=== PATIENT | male | born 1950 | race Caucasian/White ===

== ENCOUNTER 2016-06-12 16:29 | Emergency (ER) | payer OTHER ==
--- NOTE | 2016-06-12 17:47 | XR ---
EXAMINATION TYPE: XR hand complete RT, XR wrist complete RT DATE OF EXAM: 06/12/2016 5:35 PM CLINICAL HISTORY: pain TECHNIQUE: Frontal, lateral and oblique images of the right hand are obtained. COMPARISON: None. FINDINGS: There is no acute fracture/dislocation evident. The joint spaces appear within normal limi ts. The overlying soft tissue appears unremarkable. IMPRESSION: There is no acute fracture or dislocation ICD 10 NO FRACTURE, INITIAL EVALUATION EXAMINATION TYPE: XR hand complete RT, XR wrist complete RT DATE OF EXAM: 06/12/2016 5:35 PM CLINICAL HISTORY: pain TECHNIQUE: Frontal, lateral and oblique images of the right wrist are obtained. COMPARISON: None. FINDINGS: There is no acute fracture/dislocation evident. The joint spaces appear within normal limits. The o verlying soft tissue appears unremarkable. IMPRESSION: There is no acute fracture or dislocation seen. ICD 10 NO FRACTURE, INITIAL EVALUATION
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
== END 2016-06-12 18:24 | disposition home or self-care (01) ==
LOC: EC 16:29
DX: S60.221A Contusion of right hand, initial encounter (principal); W22.8XXA Striking against or struck by other objects, initial encounter
CPT/HCPCS: 99284

== ENCOUNTER 2017-02-07 00:46 | Emergency (ER) | payer OTHER ==
[2017-02-07] MEDS ORDERED: ONDANSETRON 4 MG/2 ML VIAL IVP STA (01:28)
[2017-02-07] MEDS ORDERED: MORPHINE SULFATE 4 MG/ML SYRINGE IV STA (01:28)
[2017-02-07] MEDS ORDERED: SODIUM CHLORIDE 0.9% 1,000 ML IV STA ×2 (01:28)
[2017-02-07] MEDS ORDERED: RX INFO: IV CONTRAST WAS GIVEN 1 EACH MISC MISCELLANE PRN (01:28)
--- NOTE | 2017-02-07 02:18 | ED ---
Abdominal Pain HPI - General Chief Complaint: Abdominal Pain Stated Complaint: abd pain Time Seen by Provider: 02/07/17 00:58 Source: patient, RN notes reviewed, old records reviewed Mode of arrival: ambulatory Limitations: no limitations - History of Present Illness Initial Comments: Physical is a pleasant 66-year-old male presenting to the emergency Department chief complaint of left lower abdominal pain for the past day. Patient reports that it seemed to occur after he ate ice cream, he does have a history of lactose intolerance. He also relates he did have 2 episodes of diarrhea. Patient states that he's had no fever or chills, denies any vomiting or nausea episodes. Patient states it seems to be a left lower dull pain, and seemed to not be letting up. Patient originally thought it was just related to indigestion. Patient denies any significant past medical history, surgical history includes bilateral knee replacements, and tonsillectomy. Patient reports the pain stays mainly in the lower abdomen, denies any specific back pain. Denies any chest pain, shortness of breath. - Related Data Previous Rx's Medication Instructions Recorded Ciprofloxacin HCl [Cipro] 500 mg PO Q12HR #14 tablet 02/07/17 HYDROcodone/APAP 5-325MG [[place] 1 tab PO Q6HR PRN #15 tab 02/07/17 5-325] Ketorolac [Toradol] 10 mg PO TID #15 tab 02/07/17 Ondansetron Odt [Zofran Odt] 4 mg PO Q8HR PRN #10 tab 02/07/17 Tamsulosin [Flomax] 0.4 mg PO DAILY #7 cap 02/07/17 Allergies Allergy/AdvReac Type Severity Reaction Status Date / Time No Known Allergies Allergy Verified 02/07/17 00:51 Review of Systems ROS Statement: Those systems with pertinent positive or pertinent negative responses have been documented in the HPI. ROS Other: All systems not noted in ROS Statement are negative. Past Medical History Past Medical History: No Reported History History of Any Multi-Drug Resistant Organisms: None Reported Additional Past Surgical History / Comment(s): bilater knee replacement Past Psychological History: No Psychological Hx Reported Smoking Status: Never smoker Past Alcohol Use History: Occasional Past Drug Use History: None Reported General Exam - General Exam Comments Initial Comments: Pleasant 66-year-old male. No distress. Limitations: no limitations General appearance: alert, in no apparent distress Head exam: Present: atraumatic, normocephalic, normal inspection Eye exam: Present: normal appearance, PERRL, EOMI. Absent: scleral icterus, conjunctival injection, periorbital swelling ENT exam: Present: normal exam, mucous membranes moist Neck exam: Present: normal inspection. Absent: tenderness, meningismus, lymphadenopathy Respiratory exam: Present: normal lung sounds bilaterally. Absent: respiratory distress, wheezes, rales, rhonchi, stridor Cardiovascular Exam: Present: regular rate, normal rhythm, normal heart sounds. Absent: systolic murmur, diastolic murmur, rubs, gallop, clicks GI/Abdominal exam: Present: soft, tenderness (minimal LLQ tenderness), normal bowel sounds, other (protruberant abdomen). Absent: distended, guarding, rebound, rigid Extremities exam: Present: normal inspection, full ROM, normal capillary refill. Absent: tenderness, pedal edema, joint swelling, calf tenderness Back exam: Present: normal inspection Neurological exam: Present: alert, oriented X3, CN II-XII intact Psychiatric exam: Present: normal affect, normal mood Skin exam: Present: warm, dry, intact, normal color. Absent: rash Course Vital Signs 02/07/ 00:51 Temperature 98.5 F Pulse Rate 85 Respiratory 20 Rate Blood Pressure 176/87 O2 Sat by Pulse 98 Oximetry Medical Decision Making - Medical Decision Making Is a 66-year-old male presenting to emergency department with 1 evening of left lower quadrant abdominal pain. Patient originally thought it was related to lactose intolerance. He does have some mental multi-tenderness left lower quadrant on exam. Patient is afebrile. Patient was given IV fluids and lab work obtained. Patient also given IV morphine in and nausea medicine. Patient was reevaluated and is resting comfortably at this time. He states that his pain has resolved. Patient's lab work showed evidence of mild leukocytosis of 12.3 with a left shift of 10.7. Patient underwent CT abdomen and pelvis, mainly concern for diverticulitis. After patient's CT was performed, there is actually evidence of a 7 mm left ureteral stone, causing hydronephrosis. Patient was informed of this. He has not seen a urologist in the past. Discussed with the patient that because of his stone being greater than 6 mm that he will need to follow-up with urologist, for further evaluation including lithotripsy or ureteral stent placement. Patient has no elevations in BUN and creatinine, and urinalysis is negative for any blood cells, or signs of infection. Patient will be given initial dose of Flomax, Zofran starter pack, and Toradol for pain. Patient will be discharged with nausea medicine and pain medication. Referral for urology. Patient understands treatment plan will comply. Close return parameters were discussed. - Lab Data Result diagrams: 02/07/17 02:08 02/07/17 02:08 Lab Results 02/07/17 02/07/17 02/07/17 Range/Units 02:08 02:08 02:08 WBC 12.3 H (3.8-10.6) k/uL RBC 4.92 (4.30-5.90) m/uL Hgb 14.6 (13.0-17.5) gm/dL Hct 41.2 (39.0-53.0) % MCV 83.7 (80.0-100.0) fL MCH 29.7 (25.0-35.0) pg MCHC 35.5 (31.0-37.0) g/dL RDW 13.3 (11.5-15.5) % Plt Count 198 (150-450) k/uL Neutrophils % 82 % Lymphocytes % 8 % Monocytes % 6 % Eosinophils % 1 % Basophils % 0 % Neutrophils # 10.0 H (1.3-7.7) k/uL Lymphocytes # 1.0 (1.0-4.8) k/uL Monocytes # 0.7 (0-1.0) k/uL Eosinophils # 0.2 (0-0.7) k/uL Basophils # 0.0 (0-0.2) k/uL PT 10.3 (9.0-12.0) sec INR 1.0 (<1.2) APTT 23.6 (22.0-30.0) sec Sodium 139 (137-145) mmol/L Potassium 4.5 (3.5-5.1) mmol/L Chloride 106 (98-107) mmol/L Carbon Dioxide 23 (22-30) mmol/L Anion Gap 10 mmol/L BUN 20 (9-20) mg/dL Creatinine 0.90 (0.66-1.25) mg/dL Est GFR (MDRD) Af Amer >60 (>60 ml/min/1.73 sqM) Est GFR (MDRD) Non-Af >60 (>60 ml/min/1.73 sqM) Glucose 127 H (74-99) mg/dL Calcium 9.2 (8.4-10.2) mg/dL Total Bilirubin 0.7 (0.2-1.3) mg/dL AST 26 (17-59) U/L ALT 41 (21-72) U/L Alkaline Phosphatase 64 (38-126) U/L Total Protein 7.1 (6.3-8.2) g/dL Albumin 4.1 (3.5-5.0) g/dL Amylase 56 (30-110) U/L Lipase 94 (23-300) U/L Urine Color Urine Appearance (Clear) Urine pH (5.0-8.0) Ur Specific [place] (1.001-1.035) Urine Protein (Negative) Urine Glucose (UA) (Negative) Urine Ketones (Negative) Urine Blood (Negative) Urine Nitrite (Negative) Urine Bilirubin (Negative) Urine Urobilinogen (<2.0) mg/dL Ur Leukocyte Esterase (Negative) 02/07/17 Range/Units 02:08 WBC (3.8-10.6) k/uL RBC (4.30-5.90) m/uL Hgb (13.0-17.5) gm/dL Hct (39.0-53.0) % MCV (80.0-100.0) fL MCH (25.0-35.0) pg MCHC (31.0-37.0) g/dL RDW (11.5-15.5) % Plt Count (150-450) k/uL Neutrophils % % Lymphocytes % % Monocytes % % Eosinophils % % Basophils % % Neutrophils # (1.3-7.7) k/uL Lymphocytes # (1.0-4.8) k/uL Monocytes # (0-1.0) k/uL Eosinophils # (0-0.7) k/uL Basophils # (0-0.2) k/uL PT (9.0-12.0) sec INR (<1.2) APTT (22.0-30.0) sec Sodium (137-145) mmol/L Potassium (3.5-5.1) mmol/L Chloride (98-107) mmol/L Carbon Dioxide (22-30) mmol/L Anion Gap mmol/L BUN (9-20) mg/dL Creatinine (0.66-1.25) mg/dL Est GFR (MDRD) Af Amer (>60 ml/min/1.73 sqM) Est GFR (MDRD) Non-Af (>60 ml/min/1.73 sqM) Glucose (74-99) mg/dL Calcium (8.4-10.2) mg/dL Total Bilirubin (0.2-1.3) mg/dL AST (17-59) U/L ALT (21-72) U/L Alkaline Phosphatase (38-126) U/L Total Protein (6.3-8.2) g/dL Albumin (3.5-5.0) g/dL Amylase (30-110) U/L Lipase (23-300) U/L Urine Color Light Yellow Urine Appearance Clear (Clear) Urine pH 6.0 (5.0-8.0) Ur Specific [place] 1.008 (1.001-1.035) Urine Protein Negative (Negative) Urine Glucose (UA) Negative (Negative) Urine Ketones Negative (Negative) Urine Blood Negative (Negative) Urine Nitrite Negative (Negative) Urine Bilirubin Negative (Negative) Urine Urobilinogen <2.0 (<2.0) mg/dL Ur Leukocyte Esterase Negative (Negative) - Radiology Data Radiology results: report reviewed CT abdomen and pelvis was performed and shows a 7 mm calculus within the left distal ureter which causes mild hydroureteronephrosis, perirenal perinephric stranding and delayed nephrogram. There also are additional nonobstructing calculi within both kidneys. Disposition Clinical Impression: Left ureteral stone Disposition: HOME SELF-CARE Condition: Good Instructions: Kidney Stones (ED) Additional Instructions: Patient advised to take the medications as prescribed. Follow-up with urology. Return to the emergency department if any alarming signs or symptoms occur. Prescriptions: Ciprofloxacin HCl [Cipro] 500 mg PO Q12HR #14 tablet HYDROcodone/APAP 5-325MG [[place] 5-325] 1 tab PO Q6HR PRN #15 tab PRN Reason: Pain Ketorolac [Toradol] 10 mg PO TID #15 tab Ondansetron Odt [Zofran Odt] 4 mg PO Q8HR PRN #10 tab PRN Reason: Nausea Tamsulosin [Flomax] 0.4 mg PO DAILY #7 cap Referrals: Bear Zapata MD [Primary Care Provider] - 1-2 days Time of Disposition: 03:59
[2017-02-07 02:23] LABS: Appearance,Urine Clear (Clear); Bilirubin,Urine Negative (Negative); Glucose,Urine (UA) Negative (Negative); Ketones,Urine Negative (Negative); Leukocyte Esterase,Urine Negative (Negative); Nitrite,Urine Negative (Negative); Protein,Urine Negative (Negative); Specific Gravity,Urine 1.008 (1.001-1.035); UA Billing (MACRO vs. MICRO) CHEM; Urobilinogen,Urine <2.0 mg/dL (<2.0)
[2017-02-07 02:28] LABS: Basophils % (A) 0 %; CH 29.6; CHCM 35.5; Eosinophils # (A) 0.2 k/uL (0-0.7); Eosinophils % (A) 1 %; HCT 41.2 % (39.0-53.0); HDW 2.77; HGB 14.6 gm/dL (13.0-17.5); Luc # (Auto) 0.31; Luc % (Auto) 3; Lymphocytes % (A) 8 %; MCH 29.7 pg (25.0-35.0); MCHC 35.5 g/dL (31.0-37.0); MCV 83.7 fL (80.0-100.0); Monocytes # (A) 0.7 k/uL (0-1.0); Monocytes % (A) 6 %; Neutrophils % (A) 82 %; RBC 4.92 m/uL (4.30-5.90); RDW 13.3 % (11.5-15.5); WBC 12.3 k/uL (3.8-10.6); WBC (Perox) 11.92
[2017-02-07 02:32] LABS: Partial Thromboplastin Time 23.6 sec (22.0-30.0); Prothrombin Time 10.3 sec (9.0-12.0)
[2017-02-07 02:33] LABS: ALT 41 U/L (21-72); AST 26 U/L (17-59); Alkaline Phosphatase 64 U/L (38-126); Amylase 56 U/L (30-110); Anion Gap 10 mmol/L; Blood Urea Nitrogen 20 mg/dL (9-20); Calcium 9.2 mg/dL (8.4-10.2); Carbon Dioxide 23 mmol/L (22-30); Chloride 106 mmol/L (98-107); Glucose 127 mg/dL (74-99); Non-African American GFR(MDRD) >60 (>60 ml/min/1.73 sqM); Potassium 4.5 mmol/L (3.5-5.1); Sodium 139 mmol/L (137-145); Total Bilirubin 0.7 mg/dL (0.2-1.3); Total Protein 7.1 g/dL (6.3-8.2)
--- NOTE | 2017-02-07 03:10 | CT ---
EXAM: CT Abdomen and Pelvis With Intravenous Contrast CLINICAL HISTORY: Abdominal pain TECHNIQUE: Axial computed tomography images of the abdomen and pelvis with intravenous contrast. CTDI is 61.1, 59.10 mGy and DLP is 5072.5 mGy-cm. This CT exam was performed using one or more of the following dose reduction techniques: automated exposure control, adjustment of the mA and/or kV according to patient size, and/or use of iterative reconstruction technique. COMPARISON: No relevant prior studies available. FINDINGS: Lower thorax: No acute findings. ABDOMEN: Liver: Decreased attenuation of the liver which may be phase of IV contrast versus hepatic steatosis. Gallbladder and bile ducts: Unremarkable. Pancreas: Unremarkable. Spleen: Unremarkable. Adrenals: Unremarkable. Kidneys and ureters: There is a 7 mm calculus within the distal left ureter (4-73) which causes mild hydroureteronephrosis, perirenal/perinephric stranding and delayed nephrogram. There are additional non-obstructing calculi within both kidneys. Stomach and bowel: Unremarkable. Appendix: No findings to suggest acute appendicitis. PELVIS: Bladder: Unremarkable. Reproductive: Unremarkable as visualized. ABDOMEN and PELVIS: Intraperitoneal space: Unremarkable. Bones/joints: No acute fracture. No dislocation. Soft tissues: Unremarkable. Vasculature: Unremarkable. Lymph nodes: Unremarkable. IMPRESSION: 1. There is a 7 mm calculus within the distal left ureter (4-73) which causes mild hydroureteronephrosis, perirenal/perinephric stranding and delayed nephrogram. 2. There are additional non-obstructing calculi within both kidneys.
[2017-02-07] MEDS ORDERED: ONDANSETRON 4 MG ODT STARTER PACK 2 TAB BTL PO STA (03:57)
[2017-02-07] MEDS ORDERED: ACET/COD 300 MG/30 MG STARTER PACK 6 TAB BTL PO STA (03:57)
[2017-02-07] MEDS ORDERED: KETOROLAC 30 MG/ML 1 ML VIAL IVP STA (03:57)
[2017-02-07] MEDS ORDERED: CIPROFLOXACIN HCL 500 MG TAB PO STA (03:58)
[2017-02-07] MEDS ORDERED: TAMSULOSIN 0.4 MG CAP.ER.24H PO STA (03:58)
--- NOTE | 2017-02-07 04:03 | ED ---
Medical Decision Making - Lab Data Result diagrams: 02/07/17 02:08 02/07/17 02:08 Lab Results 02/07/17 02/07/17 02/07/17 Range/Units 02:08 02:08 02:08 WBC 12.3 H (3.8-10.6) k/uL RBC 4.92 (4.30-5.90) m/uL Hgb 14.6 (13.0-17.5) gm/dL Hct 41.2 (39.0-53.0) % MCV 83.7 (80.0-100.0) fL MCH 29.7 (25.0-35.0) pg MCHC 35.5 (31.0-37.0) g/dL RDW 13.3 (11.5-15.5) % Plt Count 198 (150-450) k/uL Neutrophils % 82 % Lymphocytes % 8 % Monocytes % 6 % Eosinophils % 1 % Basophils % 0 % Neutrophils # 10.0 H (1.3-7.7) k/uL Lymphocytes # 1.0 (1.0-4.8) k/uL Monocytes # 0.7 (0-1.0) k/uL Eosinophils # 0.2 (0-0.7) k/uL Basophils # 0.0 (0-0.2) k/uL PT 10.3 (9.0-12.0) sec INR 1.0 (<1.2) APTT 23.6 (22.0-30.0) sec Sodium 139 (137-145) mmol/L Potassium 4.5 (3.5-5.1) mmol/L Chloride 106 (98-107) mmol/L Carbon Dioxide 23 (22-30) mmol/L Anion Gap 10 mmol/L BUN 20 (9-20) mg/dL Creatinine 0.90 (0.66-1.25) mg/dL Est GFR (MDRD) Af Amer >60 (>60 ml/min/1.73 sqM) Est GFR (MDRD) Non-Af >60 (>60 ml/min/1.73 sqM) Glucose 127 H (74-99) mg/dL Calcium 9.2 (8.4-10.2) mg/dL Total Bilirubin 0.7 (0.2-1.3) mg/dL AST 26 (17-59) U/L ALT 41 (21-72) U/L Alkaline Phosphatase 64 (38-126) U/L Total Protein 7.1 (6.3-8.2) g/dL Albumin 4.1 (3.5-5.0) g/dL Amylase 56 (30-110) U/L Lipase 94 (23-300) U/L Urine Color Urine Appearance (Clear) Urine pH (5.0-8.0) Ur Specific [place] (1.001-1.035) Urine Protein (Negative) Urine Glucose (UA) (Negative) Urine Ketones (Negative) Urine Blood (Negative) Urine Nitrite (Negative) Urine Bilirubin (Negative) Urine Urobilinogen (<2.0) mg/dL Ur Leukocyte Esterase (Negative) 02/07/17 Range/Units 02:08 WBC (3.8-10.6) k/uL RBC (4.30-5.90) m/uL Hgb (13.0-17.5) gm/dL Hct (39.0-53.0) % MCV (80.0-100.0) fL MCH (25.0-35.0) pg MCHC (31.0-37.0) g/dL RDW (11.5-15.5) % Plt Count (150-450) k/uL Neutrophils % % Lymphocytes % % Monocytes % % Eosinophils % % Basophils % % Neutrophils # (1.3-7.7) k/uL Lymphocytes # (1.0-4.8) k/uL Monocytes # (0-1.0) k/uL Eosinophils # (0-0.7) k/uL Basophils # (0-0.2) k/uL PT (9.0-12.0) sec INR (<1.2) APTT (22.0-30.0) sec Sodium (137-145) mmol/L Potassium (3.5-5.1) mmol/L Chloride (98-107) mmol/L Carbon Dioxide (22-30) mmol/L Anion Gap mmol/L BUN (9-20) mg/dL Creatinine (0.66-1.25) mg/dL Est GFR (MDRD) Af Amer (>60 ml/min/1.73 sqM) Est GFR (MDRD) Non-Af (>60 ml/min/1.73 sqM) Glucose (74-99) mg/dL Calcium (8.4-10.2) mg/dL Total Bilirubin (0.2-1.3) mg/dL AST (17-59) U/L ALT (21-72) U/L Alkaline Phosphatase (38-126) U/L Total Protein (6.3-8.2) g/dL Albumin (3.5-5.0) g/dL Amylase (30-110) U/L Lipase (23-300) U/L Urine Color Light Yellow Urine Appearance Clear (Clear) Urine pH 6.0 (5.0-8.0) Ur Specific [place] 1.008 (1.001-1.035) Urine Protein Negative (Negative) Urine Glucose (UA) Negative (Negative) Urine Ketones Negative (Negative) Urine Blood Negative (Negative) Urine Nitrite Negative (Negative) Urine Bilirubin Negative (Negative) Urine Urobilinogen <2.0 (<2.0) mg/dL Ur Leukocyte Esterase Negative (Negative) Disposition Clinical Impression: Left ureteral stone Disposition: HOME SELF-CARE Condition: Good Instructions: Kidney Stones (ED) Additional Instructions: Patient advised to take the medications as prescribed. Follow-up with urology. Return to the emergency department if any alarming signs or symptoms occur. Prescriptions: Ciprofloxacin HCl [Cipro] 500 mg PO Q12HR #14 tablet HYDROcodone/APAP 5-325MG [[place] 5-325] 1 tab PO Q6HR PRN #15 tab PRN Reason: Pain Ketorolac [Toradol] 10 mg PO TID #15 tab Ondansetron Odt [Zofran Odt] 4 mg PO Q8HR PRN #10 tab PRN Reason: Nausea Tamsulosin [Flomax] 0.4 mg PO DAILY #7 cap Referrals: Bear Zapata MD [Primary Care Provider] - 1-2 days Gabriel Laughlin MD [STAFF PHYSICIAN] - 1-2 days Time of Disposition: 04:03
[2017-02-07 04:20] VITALS: BP 156/85; PULSE 68; RESP 16; TEMP 98.8
== END 2017-02-07 04:26 | disposition home or self-care (01) ==
LOC: EC 00:46
DX: N13.2 Hydronephrosis with renal and ureteral calculous obstruction (principal); Z96.653 Presence of artificial knee joint, bilateral
CPT/HCPCS: 36415; 80053; 82150; 83690; 85025; 85610; 85730; 81003; 74177; 99285; 96374; 96375 ×2; 96361 ×2; J2270; J2405; J1885; Q9967; S0119

== ENCOUNTER → 2017-02-24 | Outpatient (CLI) | payer MEDICARE, OTHER ==
--- NOTE | 2017-02-25 10:37 | XR ---
Abdomen HISTORY: Calculus of ureter Frontal view of the abdomen submitted on 2 images [address] correlated to CT scan 02/07/2017 Heart degenerative disc changes in the visualized spine. Suspect a distal left ureteral calculus is p resent correlating with CT findings measuring approximately 6 mm in greatest dimension. Lung bases ar e not included in the exam. No evident bowel obstruction or pneumoperitoneum. IMPRESSION: Findings compatible with distal left ureteral calculus.
== END | disposition home or self-care (01) ==
LOC: RADXRMAIN 17:34
PROVIDERS: ATTEND Physician Assistant
DX: N20.1 Calculus of ureter (principal)
CPT/HCPCS: 74000

== ENCOUNTER → 2017-03-14 | Outpatient (CLI) | payer OTHER, MEDICARE ==
--- NOTE | 2017-03-14 14:27 | US ---
EXAMINATION TYPE: US kidneys/renal and bladder DATE OF EXAM: 03/14/2017 COMPARISON: CT 2017 CLINICAL HISTORY: N20.1 Calculus of ureter. EXAM MEASUREMENTS: Right Kidney: 11.3 x 5.8 x 4.8 cm Left Kidney: 11.6 x 5.7 x 4.6 cm Right Kidney: No hydronephrosis. Echogenic focus visualized measuring 0.4 cm Left Kidney: No hydronephrosis. Echogenic focus visualized measuring 0.6 cm Bladder: wnl, not fully distended Bilateral Jets seen: No, however, bladder is not fully distended There is no evidence for hydronephrosis at this point in time. No masses are identified. The urinar y bladder is anechoic. Cortical medullary differentiation is maintained. IMPRESSION: Bilateral nephrolithiasis. No evident hydronephrosis.
== END ==
LOC: RADUSMAIN 13:42
PROVIDERS: ATTEND Urology
DX: N20.0 Calculus of kidney (principal)
CPT/HCPCS: 76770

== ENCOUNTER 2018-06-29 07:22 | Day surgery (SDC) | payer BC, MEDICARE ==
[2018-06-25 14:03] VITALS: BMI 45.6
--- NOTE | 2018-06-29 05:37 | P.GSHP ---
History of Present Illness H&P Date: 06/29/18 CHIEF COMPLAINT: Colon screen HISTORY OF PRESENT ILLNESS: The patient is a 67-year-old male who presents for colon screen. Lower endoscopy was offered for further evaluation and management. PAST MEDICAL HISTORY: Please see list. PAST SURGICAL HISTORY: Please see list. MEDICATIONS: Please see list. ALLERGIES: Please see list. SOCIAL HISTORY: No illicit drug use FAMILY HISTORY: No reports of Crohn disease or ulcerative colitis. REVIEW OF ORGAN SYSTEMS: CONSTITUTIONAL: No reports of fevers or chills. PHYSICAL EXAM: VITAL SIGNS: Stable GENERAL: Well-developed pleasant in no acute distress. HEENT: No scleral icterus. Extraocular movements grossly intact. Moist buccal mucosa. NECK: Supple without lymphadenopathy. CHEST: Unlabored respirations. Equal bilateral excursions. CARDIOVASCULAR: Regular rate and rhythm. Distal 2+ pulses. ABDOMEN: Soft, nontender, nondistended. MUSCULOSKELETAL: No clubbing, cyanosis, or edema. ASSESSMENT: 1. Colon screen. PLAN: 1. Recommend proceeding with a lower endoscopy Past Medical History Past Medical History: Diabetes Mellitus Additional Past Medical History / Comment(s): STATES BORDERLINE DIABETES, HX KIDNEY STONES, HX OF MALARIA 35 YRS AGO History of Any Multi-Drug Resistant Organisms: None Reported Past Surgical History: Joint Replacement Additional Past Surgical History / Comment(s): jennifer knee replacement Past Anesthesia/Blood Transfusion Reactions: Previous Problems w/ Anesthesia Additional Past Anesthesia/Blood Transfusion Reaction / Comment(s): WOKE UP DURING LAST COLONOSCOPY Smoking Status: Never smoker Medications and Allergies Home Medications Medication Instructions Recorded Confirmed Type Adipex 1 tab PO DAILY 06/25/18 History Metformin 1 tab PO BID 06/25/18 History [place]-3 Fatty Acids/Fish Oil [Fish 1 each PO 06/25/18 History Oil 1,000 mg Softgel] Allergies Allergy/AdvReac Type Severity Reaction Status Date / Time No Known Allergies Allergy Verified 06/25/18 13:58
[~2018-06-29 07:22] MED LIST: LACTATED RINGERS 1,000 ML IV SCH
[2018-06-29 08:15] VITALS: RESP 16; TEMP 97
[2018-06-29] MEDS ORDERED: LIDOCAINE 1% 20 ML VIAL (10MG/ML) FOR IV START INTRADERMA ONE (08:15)
[2018-06-29 08:19] LABS: Glucose,Whole Blood 105 mg/dL (75-99)
[2018-06-29] MEDS ORDERED: PROPOFOL 10 MG/ML 20 ML VIAL IV ONE (09:15)
--- NOTE | 2018-06-29 09:43 | P.PCN ---
Date of Procedure: 06/29/18 Description of Procedure: PREOPERATIVE DIAGNOSIS: Family history of colon cancer, grandfather Colonoscopy screening POSTOPERATIVE DIAGNOSIS: Family history of colon cancer, grandfather Colonoscopy screening Multiple tubular adenomas throughout the colon. OPERATION: Colonoscopy to the ileocecal valve and appendiceal orifice. Colonoscopy with multiple hot snare polypectomies SURGEON: Rosemary Meade MD. ANESTHESIA: MAC. INDICATIONS: The patient is a 67year-old male who presents for colonoscopy screening. Last colonoscopy 10 years ago. Benefits and risks were described and informed consent was obtained. DESCRIPTION OF PROCEDURE: The patient had undergone Gatorade, MiraLAX and Dulcolax prep. He had been brought into the operating room and laid in the left lateral decubitus position. After adequate intravenous sedation, the rectum was examined with 2% lidocaine jelly. External hemorrhoids were encountered. The rectal tone was within normal limits. No lesions were palpated in the rectal vault. An Olympus colonoscope was advanced until the ileocecal valve and appendiceal orifice were clearly viewed. The prep was poor. The scope was removed with visualization of each mucosal fold. No scattered diverticulosis was encountered. Multiple colonic polyps were found and cold forcep biopsy or snare polypectomy. No evidence of focal colitis was found. Retroflexion of the scope demonstrated grade 1 internal hemorrhoids without active bleeding or inflammation. The colon was desufflated. The patient had tolerated the procedure well. Withdrawal time was over 6 minutes. FINDINGS: Internal hemorrhoids, grade 1 External hemorrhoids, grade 2. No arteriovenous malformations. Removal of 3 polyps: - Snare polypectomy mid transverse colon 2, 5 mm tubulovillous adenoma polyps. - Snare polypectomy 40 cm from the anal verge, 8 mm flat villous adenoma polyp, descending colon Overall poor prep. No focal colitis. RECOMMENDATIONS: Given family history and severity of tubular adenomas, recommend repeat colonoscopy 2 years, 2020. Plan - Discharge Summary Discharge Rx Participant: No New Discharge Prescriptions: No Action [place]-3 Fatty Acids/Fish Oil [Fish Oil 1,000 mg Softgel] 1,000 mg PO DAILY Metformin 500 mg PO DAILY Adipex 37.5 mg PO DAILY Discharge Medication List Adipex 37.5 mg PO DAILY 06/25/18 [History] Metformin 500 mg PO DAILY 06/25/18 [History] [place]-3 Fatty Acids/Fish Oil [Fish Oil 1,000 mg Softgel] 1,000 mg PO DAILY 06/25 [History]
[2018-06-29 10:06] VITALS: BP 157/94; PULSE 66
== END 2018-06-29 10:36 | disposition home or self-care (01) ==
LOC: ORWHC2ENDO 07:22
PROVIDERS: ATTEND Surgery Plastic and Reconstructive Surgery
DX: Z12.11 Encounter for screening for malignant neoplasm of colon (principal); D12.3 Benign neoplasm of transverse colon; D12.4 Benign neoplasm of descending colon; E11.9 Type 2 diabetes mellitus without complications; K64.4 Residual hemorrhoidal skin tags; K64.0 First degree hemorrhoids; E66.01 Morbid (severe) obesity due to excess calories; G47.33 Obstructive sleep apnea (adult) (pediatric); Z79.84 Long term (current) use of oral hypoglycemic drugs; Z79.899 Other long term (current) drug therapy; Z96.653 Presence of artificial knee joint, bilateral; Z80.0 Family history of malignant neoplasm of digestive organs; Z68.42 Body mass index [BMI] 45.0-49.9, adult
CPT/HCPCS: 88305; 45385; J2704

== ENCOUNTER → 2018-06-29 | Outpatient (CLI) | payer MEDICARE ==
--- NOTE | 2018-06-29 07:38 | US ---
EXAMINATION TYPE: US duplex aorta DATE OF EXAM: 06/29/2018 COMPARISON: CT 2017 CLINICAL HISTORY: I71.4 Abdominal Aortic Aneurysm w/o rupture. Family history of AAA EXAM MEASUREMENTS: Abdominal Aorta: Proximal: 2.9 x 2.8cm Mid: 2.4 x 2.7cm Distal: 2.2 x 2.4cm Right Iliac: 1.4 x 1.3cm Left Iliac: 1.5 x 1.3cm Technically difficult and limited study due to patient body habitus Examination is suboptimal secondary to patient's large body habitus. Visualized portions of aorta thr ough the common iliac bifurcation show no greater than 3 cm aneurysmal change. IMPRESSION: Suboptimal study without AAA appreciated.
== END | disposition home or self-care (01) ==
LOC: RADUSWWP 06:49
PROVIDERS: ATTEND Family Medicine
DX: I71.4 Abdominal aortic aneurysm, without rupture (principal)
CPT/HCPCS: 93979

== ENCOUNTER → 2019-04-26 | Outpatient (CLI) | payer MEDICARE ==
--- NOTE | 2019-04-26 22:45 | XR ---
EXAMINATION TYPE: XR shoulder complete LT DATE OF EXAM: 04/26/2019 COMPARISON: NONE HISTORY: Pain TECHNIQUE: Three views are submitted. FINDINGS: The osseous structures are intact. There is no acute fracture or dislocation. The AC joint is maint ained. There is mild hypertrophic changes. IMPRESSION: 1. Mild AC joint arthropathy spurring. If there is concern for chronic rotator cuff disease correlate with MRI. 2. Chronic appearing deformity along the lower margin of the humeral head may be post arthritic or on the basis of previous trauma correlate clinically.
== END | disposition home or self-care (01) ==
LOC: RADXRMAIN 18:36
PROVIDERS: ATTEND Family Medicine
DX: M19.012 Primary osteoarthritis, left shoulder (principal); M21.822 Other specified acquired deformities of left upper arm

== ENCOUNTER → 2019-06-09 | Outpatient (CLI) | payer MEDICARE ==
--- NOTE | 2019-06-10 01:52 | MR ---
EXAMINATION TYPE: MR shoulder LT wo con DATE OF EXAM: 06/09/2019 COMPARISON: None HISTORY: Lt shoulder pain Multiplanar multiecho imaging of the left shoulder was performed without contrast. There is significant narrowing of the shoulder joint space with spur formation. Subscapularis tendon appears intact. There is some fluid around the biceps tendon. There is mild shoulder joint effusion. There is spurring of the glenoid talha. There is moderate spurring on the inferior humeral head. Ther e is increased signal in the supraspinatus tendon over the greater tuberosity of the humerus. There i s no retraction. I see no fracture line. There is hypertrophic spurring of the glenoid talha. There i s 5 mm low signal rounded foci at the posterior aspect of the shoulder joint that could be synovial c hondromatosis. 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 Mild shoulder wayne int effusion. Full-thickness tear of the supraspinatus tendon without retraction. No fracture seen.
== END | disposition home or self-care (01) ==
LOC: RADMRIMAIN 21:03
PROVIDERS: ATTEND Orthopaedic Surgery
DX: M75.122 Complete rotator cuff tear or rupture of left shoulder, not specified as traumatic (principal); M19.012 Primary osteoarthritis, left shoulder

== ENCOUNTER 2019-06-11 18:02 | Emergency (ER) | payer MEDICARE ==
[2019-06-11 18:07] VITALS: TEMP 98.4
--- NOTE | 2019-06-11 19:12 | ED ---
Fall HPI - General Chief Complaint: Fall Stated Complaint: slip & fall-[facility] Time Seen by Provider: 06/11/19 18:26 Source: patient Mode of arrival: ambulatory - History of Present Illness Initial Comments: 68-year-old male patient presents to the emergency department today for evalu ation after experiencing a fall. Patient states around 12:15 this afternoon he slipped forward on some ice landing on some stairs. Patient states that he struck his abdomen and the left elbow. Patient is reporting upper abdominal pain and left elbow pain. He denies hitting his head or losing consciousness. Denies headache. Denies any neck or back pain. Denies any nausea, vomiting, constipation, diarrhea. He did have a bowel movement, denies hematochezia or melena. He denies any hematuria. Denies dizziness or weakness. Denies any shortness of breath or hemoptysis. Denies any use of anticoagulants. - Related Data Home Medications Medication Instructions Recorded Confirmed Adipex 37.5 mg PO DAILY 06/25/18 06/29/18 Metformin 500 mg PO DAILY 06/25/18 06/29/18 [place]-3 Fatty Acids/Fish Oil [Fish 1,000 mg PO DAILY 06/25/18 06/29/18 Oil 1,000 mg Softgel] Allergies Allergy/AdvReac Type Severity Reaction Status Date / Time No Known Allergies Allergy Verified 06/11/19 18:07 Review of Systems ROS Statement: Those systems with pertinent positive or pertinent negative responses have been documented in the HPI. ROS Other: All systems not noted in ROS Statement are negative. Past Medical History Past Medical History: Diabetes Mellitus Additional Past Medical History / Comment(s): STATES BORDERLINE DIABETES, HX KIDNEY STONES, HX OF MALARIA 35 YRS AGO History of Any Multi-Drug Resistant Organisms: None Reported Past Surgical History: Joint Replacement Additional Past Surgical History / Comment(s): jennifer knee replacement Past Anesthesia/Blood Transfusion Reactions: Previous Problems w/ Anesthesia Additional Past Anesthesia/Blood Transfusion Reaction / Comment(s): WOKE UP DURING LAST COLONOSCOPY Past Psychological History: No Psychological Hx Reported Smoking Status: Never smoker Past Alcohol Use History: None Reported Past Drug Use History: None Reported General Exam Limitations: no limitations General appearance: alert, in no apparent distress, other (This is a well- developed, well-nourished adult male patient in no acute distress. Vital signs upon presentation are temperature 98.4F, pulse 79, respirations 20, blood pressure 162/92, pulse ox 97% on room air) Head exam: Present: atraumatic, normocephalic, normal inspection Eye exam: Present: normal appearance, PERRL, EOMI. Absent: scleral icterus, conjunctival injection, nystagmus, periorbital swelling ENT exam: Present: normal exam, normal oropharynx, mucous membranes moist Neck exam: Present: normal inspection, full ROM, other (Nontender, no step-off, no deformity to firm midline palpation of the posterior cervical spine. Full range of motion without pain or limitation.). Absent: tenderness, meningismus, lymphadenopathy Respiratory exam: Present: normal lung sounds bilaterally, chest wall tenderness (Right lateral rib). Absent: respiratory distress, wheezes, rales, rhonchi, stridor Cardiovascular Exam: Present: regular rate, normal rhythm, normal heart sounds. Absent: systolic murmur, diastolic murmur, rubs, gallop, clicks GI/Abdominal exam: Present: soft, tenderness (Right upper quadrant, left upper quadrant), normal bowel sounds. Absent: distended, guarding, rebound, rigid Back exam: Present: normal inspection, other (Nontender, no step-off, no deformity to firm midline palpation of the thoracic and lumbar vertebrae. Full range of motion without pain or limitation.). Absent: vertebral tenderness Neurological exam: Present: alert, oriented X3, CN II-XII intact Psychiatric exam: Present: normal affect, normal mood Skin exam: Present: warm, dry, intact, normal color. Absent: rash Course Vital Signs 06/11/19 06/11/19 18:04 22:12 Temperature 98.4 F Pulse Rate 79 80 Respiratory 20 18 Rate Blood Pressure 162/92 160/85 O2 Sat by Pulse 97 98 Oximetry Medical Decision Making - Medical Decision Making 68-year-old male patient presents to the emergency department today for evaluat ion of abdominal pain and left elbow pain after experiencing a slip and fall accident. Physical examination did reveal right upper quadrant and left upper quadrant tenderness. No surface trauma or ecchymosis was noted. Is also reporting left elbow pain. Neurovascular status is intact to the left elbow. There is no surface trauma or swelling. X-rays of left elbow and right ribs were obtained and were negative for any fractures. Abdomen and pelvis computed tomography scan was obtained and showed no acute traumatic injury. I did discuss findings and results with the patient. We discussed contusions as cause for his pain. He is instructed to take Tylenol Motrin for pain control. Is in structed to follow-up with the primary care physician or industrial [employer] services for further evaluation as soon as possible. Return parameters were discussed in detail. He verbalizes understanding and agrees with this plan. - Lab Data Result diagrams: 06/11/19 19:32 06/11/19 19:32 Lab Results 06/11/19 06/11/19 06/11/19 Range/Units 19:32 19:32 19:32 WBC 6.6 (3.8-10.6) k/uL RBC 4.86 (4.30-5.90) m/uL Hgb 13.7 (13.0-17.5) gm/dL Hct 40.7 (39.0-53.0) % MCV 83.7 (80.0-100.0) fL MCH 28.2 (25.0-35.0) pg MCHC 33.7 (31.0-37.0) g/dL RDW 13.0 (11.5-15.5) % Plt Count 184 (150-450) k/uL Neutrophils % 68 % Lymphocytes % 17 % Monocytes % 8 % Eosinophils % 4 % Basophils % 1 % Neutrophils # 4.5 (1.3-7.7) k/uL Lymphocytes # 1.1 (1.0-4.8) k/uL Monocytes # 0.5 (0-1.0) k/uL Eosinophils # 0.2 (0-0.7) k/uL Basophils # 0.0 (0-0.2) k/uL PT 10.1 (9.0-12.0) sec INR 1.0 (<1.2) APTT 22.9 (22.0-30.0) sec Sodium 138 (137-145) mmol/L Potassium 4.2 (3.5-5.1) mmol/L Chloride 108 H (98-107) mmol/L Carbon Dioxide 22 (22-30) mmol/L Anion Gap 8 mmol/L BUN 22 H (9-20) mg/dL Creatinine 0.88 (0.66-1.25) mg/dL Est GFR (CKD-EPI)AfAm >90 (>60 ml/min/1.73 sqM) Est GFR (CKD-EPI)NonAf 89 (>60 ml/min/1.73 sqM) Glucose 99 (74-99) mg/dL Calcium 8.8 (8.4-10.2) mg/dL Total Bilirubin 0.7 (0.2-1.3) mg/dL AST 32 (17-59) U/L ALT 26 (4-49) U/L Alkaline Phosphatase 57 (38-126) U/L Total Protein 6.9 (6.3-8.2) g/dL Albumin 4.0 (3.5-5.0) g/dL - Radiology Data Radiology results: report reviewed, image reviewed 4 views of the left upper obtained. Report was reviewed in its entirety. Impression by Dr. Conway shows hypertrophic osteoarthritic changes. No fracture seen. 5 views of the right ribs and chest are obtained. Report was reviewed in its entirety. Impression by Dr. Conway shows no active cardiopulmonary disease. Normal right ribs. CT abdomen and pelvis with contrast obtained. Report was reviewed in its entirety. Impression by Dr. Conway shows no evidence of acute medical injury. No fracture. L4 to 5 spinal stenosis. Disposition Clinical Impression: Contusion of rib on right side, Left elbow contusion Disposition: HOME SELF-CARE Condition: Good Instructions (If sedation given, give patient instructions): Contusion in Adults (ED), Rib Contusion (ED) Additional Instructions: Tylenol and Motrin for pain control. Apply ice to the painful areas. Rest. Follow-up through primary care physician for recheck in 1-2 days. Follow-up with employee health services as needed. Return to the emergency department immediately for any new, worsening, or concerning symptoms. Is patient prescribed a controlled substance at d/c from ED?: No Referrals: Ryan Levy MD [Primary Care Provider] - 1-2 days Time of Disposition: 21:57
[2019-06-11 19:47] LABS: Basophils % (A) 1 %; Eosinophils # (A) 0.2 k/uL (0-0.7); Eosinophils % (A) 4 %; HCT 40.7 % (39.0-53.0); HGB 13.7 gm/dL (13.0-17.5); Lymphocytes # (A) 1.1 k/uL (1.0-4.8); Lymphocytes % (A) 17 %; MCH 28.2 pg (25.0-35.0); MCHC 33.7 g/dL (31.0-37.0); MCV 83.7 fL (80.0-100.0); Mean Platelet Volume 7.5; Monocytes # (A) 0.5 k/uL (0-1.0); Monocytes % (A) 8 %; Neutrophils # (A) 4.5 k/uL (1.3-7.7); Neutrophils % (A) 68 %; Platelet Count 184 k/uL (150-450); RBC 4.86 m/uL (4.30-5.90); WBC 6.6 k/uL (3.8-10.6)
[2019-06-11 19:58] LABS: Partial Thromboplastin Time 22.9 sec (22.0-30.0); Prothrombin Time 10.1 sec (9.0-12.0)
[2019-06-11 20:08] LABS: ALT 26 U/L (4-49); AST 32 U/L (17-59); African American GFR (CKD) >90 (>60 ml/min/1.73 sqM); Alkaline Phosphatase 57 U/L (38-126); Anion Gap 8 mmol/L; Blood Urea Nitrogen 22 mg/dL (9-20); Calcium 8.8 mg/dL (8.4-10.2); Carbon Dioxide 22 mmol/L (22-30); Chloride 108 mmol/L (98-107); Glucose 99 mg/dL (74-99); Non-African American GFR(CKD) 89 (>60 ml/min/1.73 sqM); Potassium 4.2 mmol/L (3.5-5.1); Sodium 138 mmol/L (137-145); Total Bilirubin 0.7 mg/dL (0.2-1.3); Total Protein 6.9 g/dL (6.3-8.2)
--- NOTE | 2019-06-11 20:08 | XR ---
EXAMINATION TYPE: XR elbow complete LT DATE OF EXAM: 06/11/2019 COMPARISON: NONE HISTORY: Pain after falling TECHNIQUE: 4 views FINDINGS: There is hypertrophic spurring at the elbow joint. I see no fracture nor dislocation. There is no sign of elbow joint effusion. There is spurring on the olecranon process of the ulna. There is spurring on the radial head and coronoid process. IMPRESSION: Hypertrophic osteoarthritic changes. No fracture seen.
--- NOTE | 2019-06-11 20:10 | XR ---
EXAMINATION TYPE: XR ribs RT w pa chest xray DATE OF EXAM: 06/11/2019 COMPARISON: NONE HISTORY: Pain after falling TECHNIQUE: 5 views FINDINGS: There is no heart failure nor confluent pneumonic infiltrate. There is no pleural effusion or pneumothorax. Right shoulder appears intact. I see no rib fracture. IMPRESSION: No active cardiopulmonary disease. Normal right ribs.
--- NOTE | 2019-06-11 21:02 | CT ---
EXAMINATION TYPE: CT abdomen pelvis w con DATE OF EXAM: 06/11/2019 COMPARISON: 02/07/2017 HISTORY: PT slipped and fell on ice into stairs. Tenderness/pain abdomen, RT side. CT DLP: 3891 mGycm Automated exposure control for dose reduction was used. CONTRAST: Performed with IV Contrast, patient injected with 100 mL of Isovue 300. Images were obtained from the diaphragm to the floor the pelvis with IV contrast. Lung bases are clear. There is no pleural effusion. Heart size is normal. There is no pericardial eff usion. Liver spleen pancreas gallbladder stomach appear normal. Bile ducts are not dilated. There is no adrenal mass. Kidneys show satisfactory contrast opacification. There is no hydronephrosi s. There are multiple bilateral nonobstructing renal calculi up to 4 mm. Ureters are not dilated. The re is no retroperitoneal adenopathy. Bladder distends smoothly. There is no inguinal hernia. There is no free fluid in the pelvis. There is small umbilical hernia that contains fat. Appendix appears nor mal. There is no mesenteric edema. There is no ascites or free air. The bony pelvis is intact. Proximal femurs and hip joints are intact. Sacroiliac joints appear normal . Lumbar spine is intact. There is degenerative disc space narrowing and multilevel vacuum disc. Ther e is no compression fracture. There is moderate spinal stenosis at L4-5. IMPRESSION: No evidence of acute traumatic injury. No fracture. L4-5 spinal stenosis.
[2019-06-11 22:13] VITALS: BP 160/85; PULSE 80; RESP 18
== END 2019-06-11 22:13 | disposition home or self-care (01) ==
LOC: EC 18:02
DX: S20.211A Contusion of right front wall of thorax, initial encounter (principal); S50.02XA Contusion of left elbow, initial encounter; R10.10 Upper abdominal pain, unspecified; Z79.84 Long term (current) use of oral hypoglycemic drugs; Z79.899 Other long term (current) drug therapy; W00.0XXA Fall on same level due to ice and snow, initial encounter; Y92.009 Unspecified place in unspecified non-institutional (private) residence as the place of occurrence of the external cause
CPT/HCPCS: 36415; 80053; 85025; 85610; 85730; 71101; 73080; 74177; 99284; Q9967

== ENCOUNTER → 2020-05-12 | Outpatient (CLI) | payer MEDICARE ==
--- NOTE | 2020-05-12 09:39 | US ---
EXAMINATION TYPE: US duplex aorta DATE OF EXAM: 05/12/2020 COMPARISON: NONE CLINICAL HISTORY: I71.4 abdominal aortic aneurysm. No personal history but maternal AAA, large body h abitus and overlying bowel gas limits exam EXAM MEASUREMENTS: Abdominal Aorta: Proximal: unable to image Mid: 2.3 x 2.3cm Distal: 2.0 x 2.3cm Bifurcation: not seen due to bowel gas and habitus Limited imaging due to reasons states above, no obvious aneurysm noted at portions of aorta that were seen. IMPRESSION: 1. Visualized aorta appears within normal limits. 2. Portions of the aorta are obscured by bowel gas with some limitation on this exam.
== END | disposition home or self-care (01) ==
LOC: RADUSWWP 09:02
PROVIDERS: ATTEND Family Medicine
DX: I71.4 Abdominal aortic aneurysm, without rupture (principal)
CPT/HCPCS: 93979

== ENCOUNTER 2020-06-01 07:56 | Emergency (ER) | payer MEDICARE ==
[2020-06-01 08:07] VITALS: RESP 18
[2020-06-01] MEDS ORDERED: ACETAMINOPHEN TAB 500 MG TAB PO STA (08:31)
[2020-06-01] MEDS ORDERED: SODIUM CHLORIDE 0.9% 500 ML 500 ML IV STA (08:39)
[2020-06-01] MEDS ORDERED: ONDANSETRON 4 MG/2 ML VIAL IVP STA (08:39)
[2020-06-01] MEDS ORDERED: SODIUM CHLORIDE 0.9% 1,000 ML IV STA (08:39)
--- NOTE | 2020-06-01 08:44 | ED ---
General Adult HPI - General Chief complaint: Abdominal Pain Stated complaint: cough/body aches/nausea/headaches/dizzy Time Seen by Provider: 06/01/20 08:05 Source: patient, RN notes reviewed, old records reviewed Mode of arrival: ambulatory Limitations: no limitations - History of Present Illness Initial comments: This is a 69-year-old male who presents emergency department with the complaint of lower abdominal pain which started 2 days ago. Patient states it came on quite intense almost brought him to his knees. Patient states that pain lasted about 10 minutes and ever since he's had lower abdominal discomfort patient states she's also been nauseated been having a difficult time eating anything currently just feels so nauseated. Patient states she's also been having a difficult time sleeping. Patient also states that a little bit of a cough and he has exposure to cold 2 weeks ago. Denies any fever chills that he knows patient denies any diarrhea. Patient denies any chest pain difficulty breathing or shortness of breath per patient denies any vomiting but does still have nausea. Patient denies any numbness or weakness but does have a headache. - Related Data Home Medications Medication Instructions Recorded Confirmed Ibuprofen [Advil] 800 mg PO Q8H PRN 06/01/20 06/01/20 metFORMIN HCL [Glucophage] 500 mg PO BID 06/01/20 06/01/20 Previous Rx's Medication Instructions Recorded Dexamethasone [Decadron] 6 mg PO DAILY #10 tablet 06/01/20 Allergies Allergy/AdvReac Type Severity Reaction Status Date / Time No Known Allergies Allergy Verified 06/01/20 08:03 Review of Systems ROS Statement: Those systems with pertinent positive or pertinent negative responses have been documented in the HPI. ROS Other: All systems not noted in ROS Statement are negative. Past Medical History Past Medical History: Diabetes Mellitus Additional Past Medical History / Comment(s): STATES BORDERLINE DIABETES, HX KIDNEY STONES, HX OF MALARIA 35 YRS AGO History of Any Multi-Drug Resistant Organisms: None Reported Past Surgical History: Joint Replacement Additional Past Surgical History / Comment(s): jennifer knee replacement Past Anesthesia/Blood Transfusion Reactions: Previous Problems w/ Anesthesia Additional Past Anesthesia/Blood Transfusion Reaction / Comment(s): WOKE UP DU RING LAST COLONOSCOPY Past Psychological History: No Psychological Hx Reported Smoking Status: Never smoker Past Alcohol Use History: Rare Past Drug Use History: None Reported General Exam - General Exam Comments Initial Comments: GENERAL: Patient is well-developed and well-nourished. Patient is nontoxic and well- hydrated and is in mild distress. ENT: Neck is soft and supple. No significant lymphadenopathy is noted. Oropharynx is clear. Moist mucous membranes. Neck has full range of motion without eliciting any pain. EYES: The sclera were anicteric and conjunctiva were pink and moist. Extraocular movements were intact and pupils were equal round and reactive to light. Eyelids were unremarkable. PULMONARY: Unlabored respirations. Good breath sounds bilaterally. No audible rales rhonchi or wheezing was noted. CARDIOVASCULAR: There is a regular rate and rhythm without any murmurs gallops or rubs. ABDOMEN: Soft and nontender with normal bowel sounds. SKIN: Skin is clear with no lesions or rashes and otherwise unremarkable. NEUROLOGIC: Patient is alert and oriented x3. Cranial nerves II through XII are grossly intact. Motor and sensory are also intact. Normal speech, volume and content. Symmetrical smile. MUSCULOSKELETAL: Normal extremities with adequate strength and full range of motion. LYMPHATICS: No significant lymphadenopathy is noted PSYCHIATRIC: Normal psychiatric evaluation. Limitations: no limitations Course Vital Signs 06/01/20 06/01/20 08:03 10:16 Temperature 99.5 F 98.6 F Pulse Rate 105 H 84 Respiratory 18 18 Rate Blood Pressure 133/91 130/78 O2 Sat by Pulse 95 94 L Oximetry Medical Decision Making - Medical Decision Making EKG shows sinus rhythm at 91 bpm CO interval 212 QRS is 84 QT interval 336 QTC is 413. Patient's EKG shows no ST segment elevation or depression. Patient is feeling better in the room and decided he wanted a sandwich. I palpated his abdomen he is no longer having any pain. Patient did test positive for COVID. - Lab Data Result diagrams: 06/01/20 08:44 06/01/20 08:44 Lab Results 06/01/20 06/01/20 06/01/20 Range/Units 08:44 08:44 08:44 WBC 5.5 (3.8-10.6) k/uL RBC 5.18 (4.30-5.90) m/uL Hgb 15.2 (13.0-17.5) gm/dL Hct 42.9 (39.0-53.0) % MCV 82.8 (80.0-100.0) fL MCH 29.4 (25.0-35.0) pg MCHC 35.5 (31.0-37.0) g/dL RDW 13.0 (11.5-15.5) % Plt Count 175 (150-450) k/uL MPV 7.3 Neutrophils % 75 % Lymphocytes % 12 % Monocytes % 7 % Eosinophils % 1 % Basophils % 3 % Neutrophils # 4.1 (1.3-7.7) k/uL Lymphocytes # 0.7 L (1.0-4.8) k/uL Monocytes # 0.4 (0-1.0) k/uL Eosinophils # 0.0 (0-0.7) k/uL Basophils # 0.2 (0-0.2) k/uL PT (9.0-12.0) sec INR (<1.2) APTT (22.0-30.0) sec D-Dimer (<0.60) mg/L FEU Sodium 136 L (137-145) mmol/L Potassium 3.7 (3.5-5.1) mmol/L Chloride 100 (98-107) mmol/L Carbon Dioxide 27 (22-30) mmol/L Anion Gap 9 mmol/L BUN 17 (9-20) mg/dL Creatinine 0.97 (0.66-1.25) mg/dL Est GFR (CKD-EPI)AfAm >90 (>60 ml/min/1.73 sqM) Est GFR (CKD-EPI)NonAf 81 (>60 ml/min/1.73 sqM) Glucose 151 H (74-99) mg/dL Plasma Lactic Acid Ulises (0.7-2.0) mmol/L Calcium 8.9 (8.4-10.2) mg/dL Magnesium (1.6-2.3) mg/dL Total Bilirubin 1.4 H (0.2-1.3) mg/dL AST 92 H (17-59) U/L ALT 100 H (4-49) U/L Alkaline Phosphatase 63 (38-126) U/L Lactate Dehydrogenase (313-618) U/L C-Reactive Protein (<10.0) mg/L Total Protein 7.4 (6.3-8.2) g/dL Albumin 4.1 (3.5-5.0) g/dL Amylase 41 (30-110) U/L Lipase 104 (23-300) U/L Urine Color Urine Appearance (Clear) Urine pH (5.0-8.0) Ur Specific [place] (1.001-1.035) Urine Protein (Negative) Urine Glucose (UA) (Negative) Urine Ketones (Negative) Urine Blood (Negative) Urine Nitrite (Negative) Urine Bilirubin (Negative) Urine Urobilinogen (<2.0) mg/dL Ur Leukocyte Esterase (Negative) Coronavirus (PCR) Detected A (Not Detectd) 06/01/20 06/01/20 06/01/20 Range/Units 08:44 08:50 09:36 WBC (3.8-10.6) k/uL RBC (4.30-5.90) m/uL Hgb (13.0-17.5) gm/dL Hct (39.0-53.0) % MCV (80.0-100.0) fL MCH (25.0-35.0) pg MCHC (31.0-37.0) g/dL RDW (11.5-15.5) % Plt Count (150-450) k/uL MPV Neutrophils % % Lymphocytes % % Monocytes % % Eosinophils % % Basophils % % Neutrophils # (1.3-7.7) k/uL Lymphocytes # (1.0-4.8) k/uL Monocytes # (0-1.0) k/uL Eosinophils # (0-0.7) k/uL Basophils # (0-0.2) k/uL PT 11.0 (9.0-12.0) sec INR 1.0 (<1.2) APTT 23.0 (22.0-30.0) sec D-Dimer 0.50 (<0.60) mg/L FEU Sodium (137-145) mmol/L Potassium (3.5-5.1) mmol/L Chloride (98-107) mmol/L Carbon Dioxide (22-30) mmol/L Anion Gap mmol/L BUN (9-20) mg/dL Creatinine (0.66-1.25) mg/dL Est GFR (CKD-EPI)AfAm (>60 ml/min/1.73 sqM) Est GFR (CKD-EPI)NonAf (>60 ml/min/1.73 sqM) Glucose (74-99) mg/dL Plasma Lactic Acid Ulises (0.7-2.0) mmol/L Calcium (8.4-10.2) mg/dL Magnesium 1.6 (1.6-2.3) mg/dL Total Bilirubin (0.2-1.3) mg/dL AST (17-59) U/L ALT (4-49) U/L Alkaline Phosphatase (38-126) U/L Lactate Dehydrogenase 646 H (313-618) U/L C-Reactive Protein 27.9 H (<10.0) mg/L Total Protein (6.3-8.2) g/dL Albumin (3.5-5.0) g/dL Amylase (30-110) U/L Lipase (23-300) U/L Urine Color Yellow Urine Appearance Clear (Clear) Urine pH 6.0 (5.0-8.0) Ur Specific [place] 1.022 (1.001-1.035) Urine Protein Trace H (Negative) Urine Glucose (UA) Negative (Negative) Urine Ketones Negative (Negative) Urine Blood Negative (Negative) Urine Nitrite Negative (Negative) Urine Bilirubin Negative (Negative) Urine Urobilinogen <2.0 (<2.0) mg/dL Ur Leukocyte Esterase Negative (Negative) Coronavirus (PCR) (Not Detectd) 06/01/20 Range/Units 09:36 WBC (3.8-10.6) k/uL RBC (4.30-5.90) m/uL Hgb (13.0-17.5) gm/dL Hct (39.0-53.0) % MCV (80.0-100.0) fL MCH (25.0-35.0) pg MCHC (31.0-37.0) g/dL RDW (11.5-15.5) % Plt Count (150-450) k/uL MPV Neutrophils % % Lymphocytes % % Monocytes % % Eosinophils % % Basophils % % Neutrophils # (1.3-7.7) k/uL Lymphocytes # (1.0-4.8) k/uL Monocytes # (0-1.0) k/uL Eosinophils # (0-0.7) k/uL Basophils # (0-0.2) k/uL PT (9.0-12.0) sec INR (<1.2) APTT (22.0-30.0) sec D-Dimer (<0.60) mg/L FEU Sodium (137-145) mmol/L Potassium (3.5-5.1) mmol/L Chloride (98-107) mmol/L Carbon Dioxide (22-30) mmol/L Anion Gap mmol/L BUN (9-20) mg/dL Creatinine (0.66-1.25) mg/dL Est GFR (CKD-EPI)AfAm (>60 ml/min/1.73 sqM) Est GFR (CKD-EPI)NonAf (>60 ml/min/1.73 sqM) Glucose (74-99) mg/dL Plasma Lactic Acid Ulises 1.1 (0.7-2.0) mmol/L Calcium (8.4-10.2) mg/dL Magnesium (1.6-2.3) mg/dL Total Bilirubin (0.2-1.3) mg/dL AST (17-59) U/L ALT (4-49) U/L Alkaline Phosphatase (38-126) U/L Lactate Dehydrogenase (313-618) U/L C-Reactive Protein (<10.0) mg/L Total Protein (6.3-8.2) g/dL Albumin (3.5-5.0) g/dL Amylase (30-110) U/L Lipase (23-300) U/L Urine Color Urine Appearance (Clear) Urine pH (5.0-8.0) Ur Specific [place] (1.001-1.035) Urine Protein (Negative) Urine Glucose (UA) (Negative) Urine Ketones (Negative) Urine Blood (Negative) Urine Nitrite (Negative) Urine Bilirubin (Negative) Urine Urobilinogen (<2.0) mg/dL Ur Leukocyte Esterase (Negative) Coronavirus (PCR) (Not Detectd) Disposition Clinical Impression: Abdominal pain, COVID-19 Disposition: HOME SELF-CARE Prescriptions: Dexamethasone [Decadron] 6 mg PO DAILY #10 tablet Is patient prescribed a controlled substance at d/c from ED?: No Referrals: Ryan Levy MD [Primary Care Provider] - 1-2 days Time of Disposition: 11:16
[2020-06-01 08:53] LABS: Basophils # (A) 0.2 k/uL (0-0.2); Basophils % (A) 3 %; Eosinophils % (A) 1 %; HCT 42.9 % (39.0-53.0); HGB 15.2 gm/dL (13.0-17.5); Lymphocytes # (A) 0.7 k/uL (1.0-4.8); Lymphocytes % (A) 12 %; MCH 29.4 pg (25.0-35.0); MCHC 35.5 g/dL (31.0-37.0); MCV 82.8 fL (80.0-100.0); Mean Platelet Volume 7.3; Monocytes # (A) 0.4 k/uL (0-1.0); Monocytes % (A) 7 %; Neutrophils # (A) 4.1 k/uL (1.3-7.7); Neutrophils % (A) 75 %; Platelet Count 175 k/uL (150-450); RBC 5.18 m/uL (4.30-5.90); WBC 5.5 k/uL (3.8-10.6)
[2020-06-01 08:57] LABS: Appearance,Urine Clear (Clear); Bilirubin,Urine Negative (Negative); Blood,Urine Negative (Negative); Color,Urine Yellow; Glucose,Urine (UA) Negative (Negative); Ketones,Urine Negative (Negative); Leukocyte Esterase,Urine Negative (Negative); Nitrite,Urine Negative (Negative); Protein,Urine Trace (Negative); Specific Gravity,Urine 1.022 (1.001-1.035); Urobilinogen,Urine <2.0 mg/dL (<2.0)
[2020-06-01 09:10] LABS: ALT 100 U/L (4-49); AST 92 U/L (17-59); African American GFR (CKD) >90 (>60 ml/min/1.73 sqM); Albumin 4.1 g/dL (3.5-5.0); Alkaline Phosphatase 63 U/L (38-126); Amylase 41 U/L (30-110); Anion Gap 9 mmol/L; Blood Urea Nitrogen 17 mg/dL (9-20); Calcium 8.9 mg/dL (8.4-10.2); Carbon Dioxide 27 mmol/L (22-30); Chloride 100 mmol/L (98-107); Glucose 151 mg/dL (74-99); Lipase 104 U/L (23-300); Non-African American GFR(CKD) 81 (>60 ml/min/1.73 sqM); Potassium 3.7 mmol/L (3.5-5.1); Sodium 136 mmol/L (137-145); Total Bilirubin 1.4 mg/dL (0.2-1.3); Total Protein 7.4 g/dL (6.3-8.2)
--- NOTE | 2020-06-01 09:25 | XR ---
EXAMINATION TYPE: XR chest 2V DATE OF EXAM: 06/01/2020 COMPARISON: 06/11/2019 HISTORY: 69-year-old male with abdominal pain TECHNIQUE: PA and lateral views FINDINGS: Heart normal size. Mild elongation/ectasia of the thoracic aorta. Some stringy atelectasis at the rig ht base. Mild diffuse interstitial prominence is unchanged. No hermila consolidation or pleural effusio n. IMPRESSION: Chronic changes, possible bronchitis or asthma. No acute process seen.
[2020-06-01 10:19] LABS: C Reactive Protein 27.9 mg/L (<10.0); Magnesium 1.6 mg/dL (1.6-2.3)
[2020-06-01 10:37] LABS: D-Dimer 0.5 mg/L FEU (<0.60)
[2020-06-01 11:27] VITALS: BP 130/74; PULSE 80; TEMP 98.4
[2020-06-01 18:05] LABS: Ferritin 656.2 ng/mL (22.0-322.0)
== END 2020-06-01 11:29 | disposition home or self-care (01) ==
LOC: EC 07:56
DX: U07.1 COVID-19 (principal); R10.30 Lower abdominal pain, unspecified; E11.9 Type 2 diabetes mellitus without complications; Z79.84 Long term (current) use of oral hypoglycemic drugs; Z87.442 Personal history of urinary calculi; Z96.653 Presence of artificial knee joint, bilateral
CPT/HCPCS: 36415; 93005; 85379; 80053; 82728; 82150; 83605; 83615; 83690; 83735; 85025; 85610; 85730; 86140; 81003; 84145; 87635; 71046; 99284; 96374; 96361 ×2; J2405

== ENCOUNTER → 2021-07-17 | Outpatient (CLI) | payer MEDICARE | END | disposition home or self-care (01) | LOC: LABWHC1 13:23 | PROVIDERS: ATTEND Family Medicine | DX: I10 Essential (primary) hypertension (principal) | CPT/HCPCS: 36415; 93005 ==

== ENCOUNTER → 2021-07-24 | Outpatient (CLI) | payer MEDICARE | END | disposition home or self-care (01) | LOC: LABPAT 16:15 | PROVIDERS: ATTEND Orthopaedic Surgery | DX: Z01.812 Encounter for preprocedural laboratory examination (principal); Z22.322 Carrier or suspected carrier of Methicillin resistant Staphylococcus aureus; M13.812 Other specified arthritis, left shoulder | CPT/HCPCS: 87070 ==

== ENCOUNTER 2021-07-31 09:44 | Day surgery (SDC) | payer MEDICARE ==
[2021-07-26 15:04] VITALS: BMI 49.4
--- NOTE | 2021-07-30 09:27 | HP ---
HISTORY AND PHYSICAL CHIEF COMPLAINT: Left shoulder pain. HISTORY OF PRESENT ILLNESS: The patient is a 70-year-old retired [id number]-nfhpyrwc gentleman who presents with progressive left shoulder pain for the past several years, worsening recently. He is having pain with overhead use and at night. It bothers him with normal activities. He has tried medications in addition to an injection without much relief. PAST MEDICAL HISTORY: Significant for [id number]-[id number] diabetes, arthritis and obesity. PAST SURGICAL HISTORY: Significant for bilateral total hip arthroplasty. CURRENT MEDICATIONS: Metformin and Advil. ALLERGIES: HE DENIES DRUG ALLERGIES. FAMILY HISTORY: Significant for cancer. SOCIAL HISTORY: Negative for current tobacco or alcohol use. REVIEW OF SYSTEMS: Sixteen-point review of systems otherwise reviewed and is noncontributory. PHYSICAL EXAMINATION: On examination, the patient is approximately 5 feet 8 inches, 330 pounds of endomorphic habitus. HEENT exam is nonfocal. Neck is supple. On examination of his left shoulder, he is tender about the anterior subacromial space. He has moderate crepitus. Active range of motion: Forward elevation 110 degrees, external rotation with arm at side 25 degrees, internal rotation to L5. Motor strength 5-/5 for external rotation, 4+/5 for abduction. Impingement tests, Neer tests are positive. His distal neurovascular exam appears intact in the left upper extremity. X-rays of the left shoulder obtained in the office show severe glenohumeral joint osteoarthrosis with inferior humeral head spurring. Previous MRI of the left shoulder shows evidence of a small supraspinatus tear with minimal retraction. IMPRESSION: 1. Left severe glenohumeral joint osteoarthrosis. 2. Obesity. RECOMMENDATIONS: I talked to the patient at length regarding his condition along with treatment options. At this point he is quite limited because of pain and stiffness despite conservative measures. After thorough discussion, he opts to proceed with surgery. We will plan to proceed with left total shoulder arthroplasty versus reverse total shoulder arthroplasty. We will likely keep the patient for a 23-hour hold postoperatively. Risks and benefits were discussed at length in layman's terms. MMODL / IJN: [id number] /
[~2021-07-31 09:44] MED LIST changes: +ACETAMINOPHEN TAB 500 MG TAB PO PRN; -LACTATED RINGERS 1,000 ML IV SCH; +LIDOCAINE 1% (10MG/ML) FOR IV START INTRADERMA PRN; +MELOXICAM 7.5 MG TAB PO PRN; +ONDANSETRON 4 MG/2 ML VIAL IVP ONE; +TRANEXAMIC ACID 1,000 MG in SODIUM CHLORIDE 0.9% 100 ML IVPB PRN; +TRANEXAMIC ACID IN NACL,ISO-OS 100 ML IV PRN; +ceFAZolin 3 GM in SODIUM CHLORIDE 0.9% 100 ML IVPB PRN
[2021-07-31] MEDS: LACTATED RINGERS 1,000 ML IV SCH (10:15)
[2021-07-31 10:20] LABS: Glucose,Whole Blood 125 mg/dL (75-99)
[2021-07-31] MEDS ORDERED: MIDAZOLAM 2 MG/2 ML VIAL IVP ONE (11:02)
[2021-07-31] MEDS ORDERED: fentaNYL (PF) 50 MCG/ML 2 ML AMP IVP ONE (11:04)
--- NOTE | 2021-07-31 11:23 | P.ANPRN ---
Procedure Note - Anesthesia - Nerve Block Performed Left Interscalene Single Time Out Performed: Yes (1102) Date of Procedure: 07/31/21 Procedure Start Time: : Procedure Stop Time: : Location of Patient: PreOp Indication: Acute Post-Operative Pain, Requested by Surgeon Specifically requested for management of pain by : Genaro Jernigan Sedation Type: Sedate with meaningful contact maintained Preparation: Sterile Prep Position: Supine Catheter: None Needle Types: Pajunk Needle Gauge: 21 Ultrasound used to visualize needle placement: Yes Ultrasound used to observe medication spread: Yes Injectate: 0.5% Ropivacaine (see comment for volume) (40cc) Blood Aspirated: No Pain Paresthesia on Injection Noted: No Resistance on Injection: Normal Image Stored and Saved: Yes Events: Uneventful and Well Tolerated
[2021-07-31] MEDS ORDERED: TRANEXAMIC ACID IN NACL,ISO-OS 1,000 MG/100 ML BAG ONE (12:23)
[2021-07-31] MEDS ORDERED: fentaNYL (PF) 50 MCG/ML 2 ML AMP ONE (12:23)
[2021-07-31] MEDS ORDERED: ROPIVACAINE 5 MG/ML 30 ML VIAL ONE (12:23)
[2021-07-31] MEDS ORDERED: ROCURONIUM 10 MG/ML (5 ML VIAL) IV ONE (12:23)
[2021-07-31] MEDS ORDERED: PHENYLEPHRINE-0.9% NACL SYG 1,000 MCG/10 ML SYRINGE ONE (12:23)
[2021-07-31] MEDS ORDERED: MIDAZOLAM 2 MG/2 ML VIAL ONE (12:23)
[2021-07-31] MEDS ORDERED: NEOSTIGMINE 1 MG/ML 10 ML VIAL ONE (12:23)
[2021-07-31] MEDS ORDERED: SUCCINYLCHOLINE CHLORIDE 100 MG/5 ML SYR IV ONE (12:23)
[2021-07-31] MEDS ORDERED: PROPOFOL 10 MG/ML 20 ML VIAL IV ONE (12:23)
[2021-07-31] MEDS ORDERED: LIDOCAINE 1% INJ 10MG/ML (20 ML MDV) ONE (12:23)
[2021-07-31] MEDS ORDERED: GLYCOPYRROLATE 0.2 MG/ML 2 ML VIAL ONE (12:23)
[2021-07-31] MEDS ORDERED: ceFAZolin 3,000 MG in SODIUM CHLORIDE 0.9% IRRIGATIO 3,000 ML IRRIGATION ONE (13:07)
[2021-07-31] MEDS ORDERED: HYDROmorphone 0.5 MG/0.5 ML SYRINGE IVP PRN (14:46)
[2021-07-31] MEDS ORDERED: HYDROcodone/APAP 5-325MG 1 EACH TAB PO PRN (14:46)
[2021-07-31] MEDS ORDERED: HYDROcodone/APAP 7.5-325MG 1 EACH TAB PO PRN (14:49)
--- NOTE | 2021-07-31 15:16 | P.OP ---
Date of Procedure: 07/31/21 Preoperative Diagnosis: Severe left glenohumeral joint osteoarthrosis Postoperative Diagnosis: Same Procedure(s) Performed: Left total shoulder arthroplastycemented glenoid component/press-fit humeral component Implants: Arthrex 47+2 humeral head, 47 metaphyseal baseplate, medium cage screw, large cemented glenoid component. Anesthesia: cyrus JONES Surgeon: Genaro Jernigan Loop Cutter #1: Edwardo Maloney Estimated Blood Loss (ml): 200 Pathology: other (Humeral head) Condition: stable Disposition: PACU Indications for Procedure: The patient's a 70-year-old male who presents with progressive left shoulder pain secondary to osteoarthrosis despite conservative measures. He discussion of the risks and benefits of operative intervention versus continued conservative measures was made with the patient. He opted to proceed with surgery. Operative risks to include infection, neurovascular injury, development of blood clots, possible component loosening, component failure, possible instability and need for subsequent procedures was discussed. Informed consent was obtained. Operative Findings: As below Description of Procedure: The patient was brought to the operating room, and after induction of general anesthesia was placed in the beachchair position. The bony prominences were appropriately padded. The left upper extremity was prepped and draped in normal fashion. A deltopectoral incision was then made lateral to the coracoid process extending approximately 12 cm. The skin was incised sharply. Subcutaneous tissues were divided bluntly. Electrocautery was used for hemostasis. The deltopectoral interval was identified and the cephalic vein gently retracted laterally with the deltoid. Subdeltoid adhesions were bluntly dissected. A self-retaining retractor was placed. The clavipectoral fascia was opened and the conjoined tendon gently retracted medially. The upper one third of the pectoralis major was released to help facilitate exposure. The biceps was identified and the sheath was opened. The rotator interval was opened. The biceps was tenotomized and allowed to retract distally. A subscapularis peeled was performed and the subscapularis was tagged with a #2 Ethibond suture. The rotator interval was opened. The humeral head was then exposed releasing the capsule off the humeral neck. The shoulder was gently dislocated. The cutting guide was placed planning on a cut flush with the rotator cuff insertion and 30 of retroversion. The cutting block was pinned in place. The humeral head cut was then made. Residual inferior osteophytes were carefully removed flush with the chinik cortical bone. The metaphyseal plate sized at 47 mm. merchandise pickup/receiving associate was used to the appropriate depth. A metal plate was used to protect the metaphyseal region. A posterior glenoid retractor was placed. The glenoid was then exposed releasing the labrum from the 6-12 o'clock position. Residual labral tissue was removed. The glenoid sized most appropriately at a large. A guidewire was then inserted planning on the appropriate version. The glenoid was reamed down to a bleeding bony surface. The central peg hole was drilled. The alignment guide was placed in the peripheral peg holes drilled. The trial large glenoid was placed and was fully seated. There was good anterior to posterior and inferior to superior fit. The trial component was removed. Pulsatile lavage was utilized. The bony surface was dried. The peripheral peg holes were then pressurized with cement utilizing a syringe. Excess cement was removed. A central peg glenoid was then placed and was fully seated. This was gently impacted. This was held in place until the cement had sufficiently hardened. Attention was then paid again towards preparing the proximal humerus. The 47 mm metaphyseal plate was impacted. A medium cage screw was inserted with good purchase and compression at the metaphyseal implant junction. A trial 47+2 head was placed. The shoulder was gently reduced. It was taken through a range of motion. It was felt to be stable in flexion and extension with internal and external rotation. I felt there was adequate taoist of soft tissue tension. The shoulder was gently dislocated. The trial head was removed. A speed scapularis repair was performed utilizing 2 medial portion lock anchors and 2 lateral. The rotator interval was closed with #2 Ethibond suture. The shoulder was then gently reduced and taken through range of motion and was felt to be stable. Pulsatile lavage was utilized. There was minimal drainage at this point therefore a deep drain was not placed. The deltopectoral interval was closed with interrupted 2-0 Vicryl sutures. The subcu tissues were reapproximated with interrupted 2-0 Vicryl sutures. The skin was reapproximated with 3-0 subcuticular Prolene suture. Steri-Strips were applied. A sterile dressing was applied in addition to a sling. The patient was then awoken from general anesthesia and transferred to recovery room in good condition. Blood loss was estimated at 200 mL. No complications were incurred. Sponge and needle counts were correct at the end of the case. Edwardo GARDNER assisted her the major components the case to include positioning, exposure, resection, implantation, and closure.
[2021-07-31 15:46] LABS: Glucose,Whole Blood 177 mg/dL (75-99)
[2021-07-31] MEDS: HYDROmorphone 0.5 MG/0.5 ML SYRINGE IVP PRN ×2 (16:05→16:18)
--- NOTE | 2021-07-31 16:26 | XR ---
Left shoulder HISTORY: Status post shoulder arthroplasty Single frontal view of the left shoulder correlated to prior exam 04/26/2019 Patient is status post left shoulder hemiarthroplasty. There is anatomic alignment in this single vie w. Lucency is present within the soft tissues. Left lung apex as visualized is normal. There are over lying artifacts. Probable segmental segmental basilar atelectatic changes are present. IMPRESSION: Orthopedic follow-up.
[2021-07-31] MEDS ORDERED: ONDANSETRON 4 MG/2 ML VIAL IVP ONE (16:42)
[2021-07-31] MEDS ORDERED: ACETAMINOPHEN TAB 325 MG TAB PO PRN (18:30)
--- NOTE | 2021-07-31 18:56 | P.CONS ---
History of Present Illness - Reason for Consult Consult date: 07/31/21 Medical management Requesting physician: Genaro Jernigan - Chief Complaint Severe left shoulder pain - History of Present Illness 70-year-old male with past medical history significant for type 2 diabetes mellitus hypertension morbid obesity presented to the hospital for elective left total shoulder arthroplasty postoperative day #0. Patient was seen and examined at the bedside. He is laying comfortably in the bed. He denies any chest pain or shortness of breath. Patient denies any nausea vomiting or abdominal pain. His only complaining of pain in his left shoulder and numbness in his right foot from laying on the OR table. Review of Systems All 14 review of systems evaluated and all negative except for above. Past Medical History Past Medical History: Diabetes Mellitus, Hyperlipidemia, Hypertension, Osteoarthritis (OA) Additional Past Medical History / Comment(s): STATES BORDERLINE DIABETES, HX KIDNEY STONES, HX OF MALARIA 35 YRS AGO; sleep apnea History of Any Multi-Drug Resistant Organisms: None Reported Past Surgical History: Joint Replacement Additional Past Surgical History / Comment(s): jennifer knee replacement, COLONOSCOPY Past Anesthesia/Blood Transfusion Reactions: Previous Problems w/ Anesthesia Additional Past Anesthesia/Blood Transfusion Reaction / Comm: WOKE UP DURING LAST COLONOSCOPY Past Psychological History: No Psychological Hx Reported Smoking Status: Never smoker Past Alcohol Use History: Rare Past Drug Use History: None Reported - Past Family History Father Family Medical History: Cancer Medications and Allergies Home Medications Medication Instructions Recorded Confirmed Type Ibuprofen [Advil] 800 mg PO Q8H PRN 06/01/20 07/26/21 History metFORMIN HCL [Glucophage] 500 mg PO BID 06/01/20 07/31/21 History Acetaminophen [Tylenol Arthritis] 1,300 mg PO Q8HR PRN 07/26/21 07/31/21 History Atorvastatin [Lipitor] 20 mg PO DAILY 07/26/21 07/26/21 History Losartan [Cozaar] 50 mg PO DAILY 07/26/21 07/26/21 History Multivitamins, Thera [Multivitamin 1 tab PO DAILY 07/26/21 07/26/21 History (formulary)] Berne-3 Fatty Acids/Fish Oil [Fish 1 each PO DAILY 07/26/21 07/26/21 History Oil 1,000 mg Softgel] Dulaglutide [Trulicity] 0.75 mg SQ WEEKLY 07/31/21 07/31/21 History hydroCHLOROthiazide 25 mg PO ONCE 07/31/21 07/31/21 History Allergies Allergy/AdvReac Type Severity Reaction Status Date / Time No Known Allergies Allergy Verified 07/31/21 10:02 Physical Exam Vitals: Vital Signs Temp Pulse Resp BP BP Pulse Ox 07/31/21 16:48 68 16 136/68 94 L 07/31/21 16:32 79 16 131/64 93 L 07/31/21 16:16 76 16 129/61 98 07/31/21 15:46 69 16 126/59 99 07/31/21 15:31 74 16 131/62 98 07/31/21 15:16 78 16 131/62 96 07/31/21 15:11 96.7 F L 82 16 129/98 98 07/31/21 14:46 64 16 129/62 100 07/31/21 11:17 77 16 134/79 96 07/31/21 10:09 97.2 F L 73 16 145/77 97 Intake and Output 07/31/21 07/31/21 07/31/21 06:59 14:59 22:59 Intake Total 1001 100 Output Total 200 Balance 801 100 Intake: IV 1001 100 Output: Estimated Blood Loss 200 Other: # Voids 0 Weight 150.3 kg 150.3 kg General: non toxic, no distress, appears at stated age. Obese Derm: warm, dry Head: atraumatic, normocephalic, symmetric Eyes: EOMI, no lid lag, anicteric sclera Mouth: no lip lesion, mucus membranes moist Cardiovascular: S1S2 reg, no murmur, positive posterior tibial pulse bilateral, Lungs: CTA bilateral, no rhonchi, no rales , no accessory muscle use Abdominal: soft, nontender to palpation, no guarding, no appreciable organomegaly Ext: no gross muscle atrophy, no edema, no contractures Neuro: CN II-XI grossly intact, no focal neuro deficits Psych: Alert, oriented, appropriate affect Results Labs: Abnormal Lab Results - Last 24 Hours (Table) 07/31/21 07/31/21 Range/Units 10:13 15:44 POC Glucose (mg/dL) 125 H 177 H (75-99) mg/dL Assessment and Plan Assessment: Assessment and plan: #Left severe glenohumeral joint osteoarthritis status post left total shoulder arthroplasty -Management per primary service #Type 2 diabetes mellitus -Hold oral hypoglycemic -Diabetic diet -Insulin sliding scale #Hypertension -Resume losartan and hydrochlorothiazide #Super morbid obesity BMI 50 #Obstructive sleep apnea -On CPAP #DVT prophylaxis per primary orthopedic service
[2021-07-31] MEDS: ceFAZolin 3 GM in SODIUM CHLORIDE 0.9% 100 ML IVPB SCH (19:52)
[2021-07-31 20:01] LABS: Glucose,Whole Blood 171 mg/dL (75-99)
[2021-07-31] MEDS: INSULIN ASPART (NovoLOG) 100 UNIT/ML VIAL SQ SCH (20:08)
[2021-08-01] MEDS: MECLIZINE 25 MG TAB PO PRN ×2 (01:01→09:33)
[2021-08-01] MEDS: ceFAZolin 3 GM in SODIUM CHLORIDE 0.9% 100 ML IVPB SCH (03:59)
[2021-08-01 07:09] LABS: Glucose,Whole Blood 155 mg/dL (75-99)
[2021-08-01] MEDS: INSULIN ASPART (NovoLOG) 100 UNIT/ML VIAL SQ SCH (07:26)
[2021-08-01] MEDS: LACTATED RINGERS 1,000 ML IV SCH (07:29)
[2021-08-01 08:49] LABS: Basophils # (A) 0.07 X 10*3/uL (0.00-0.10); Basophils % (A) 0.7 %; Eosinophils # (A) 0.08 X 10*3/uL (0.04-0.35); Eosinophils % (A) 0.8 %; HCT 33.9 % (39.6-50.0); HGB 11.5 g/dL (13.0-17.0); Immature Grans, Automated 0.3 %; Lymphocytes # (A) 0.96 X 10*3/uL (0.90-5.00); Lymphocytes % (A) 9.1 %; MCHC 33.9 g/dL (32.0-37.0); MCV 85.6 fL (80.0-97.0); Mean Platelet Volume 10.6 fL (9.5-12.2); Monocytes # (A) 1.24 X 10*3/uL (0.20-1.00); Monocytes % (A) 11.7 %; NRBC Per 100 WBC 0 /100 WBCS (0.0-0.0); Neutrophils # (A) 8.21 X 10*3/uL (1.80-7.70); Neutrophils % (A) 77.4 %; Platelet Count 185 X 10*3/uL (140-440); RBC 3.96 X 10*6/uL (4.40-5.60); RDW 13.1 % (11.5-14.5); WBC 10.59 X 10*3/uL (4.50-10.00)
[2021-08-01 08:57] LABS: Anion Gap 14.5 mmol/L (10.00-18.00); BUN/Creat Ratio 16.82 Ratio (12.00-20.00); Blood Urea Nitrogen 18.5 mg/dL (9.0-27.0); Calcium 8.8 mg/dL (8.7-10.3); Carbon Dioxide 25.5 mmol/L (20.0-27.5); Non-African American GFR(CKD) 68.1 (60.0-200.0); Potassium 3.4 mmol/L (3.5-5.5)
[2021-08-01] MEDS ORDERED: LOSARTAN 50 MG TAB PO SCH (09:00)
[2021-08-01] MEDS ORDERED: ENOXAPARIN 40 MG/0.4 ML SYRINGE SQ SCH (09:00)
[2021-08-01] MEDS ORDERED: hydroCHLOROthiazide 25 MG TAB PO SCH (09:00)
[2021-08-01] MEDS ORDERED: ATORVASTATIN 20 MG TAB PO SCH (09:00)
[2021-08-01] MEDS ORDERED: NON FORMULARY DRUG (Omega-3 Fatty Acids/Fish Oil [Fish Oil 1,000 Mg Softgel] 1 EACH Capsul PO SCH (09:00)
[2021-08-01] MEDS ORDERED: MULTIVITAMINS, THERA 1 EACH TAB PO SCH (09:00)
[2021-08-01 09:20] VITALS: BP 118/73; PULSE 105; RESP 16; TEMP 98.5
[2021-08-01] MEDS ORDERED: POTASSIUM CHLORIDE ER 10 MEQ TAB.ER.PRT PO STA (09:58)
--- NOTE | 2021-08-01 10:03 | P.DS ---
Providers Date of admission: 07/31/2021 Expected date of discharge: 08/01/21 Attending physician: Genaro Jernigan Consults: 07/31/21 14:51 Consult Physician Routine Consulting Provider: Shyla Varner Consult Reason/Comments: Medical Management s/p left total shoulder arthroplasty Do you want consulting provider notified?: Yes Primary care physician: Antwan Palumbo Hospital Course: Date of admission: 07/31/2021 Date of discharge: 08/01/2021 Admission diagnosis: Severe left glenohumeral joint osteoarthrosis Discharge diagnosis: Same Attending physician: Dr. eJrnigan Surgical procedures: Left total shoulder arthroplasty Brief history: Patient is a 70-year-old male with a history of severe left glenohumeral joint osteoarthrosis. At this point patient has failed conservative treatment measures and has opted to proceed with a elective left total shoulder arthroplasty. Hospital course: Details of patient's surgery can be found in operative report. Patient tolerated the procedure well and was subsequently transported to orthopedic floor. Patient's orthopeidc and medical care was provided daily. Patient had daily laboratory tests performed for evaluation of overall blood counts. Patient had daily physical therapy to include strengthening range of motion as well as education with walker ambulation. Patient was treated with Lovenox for their postoperative DVT prophylaxis during their inpatient stay. Patient was noted to have a relatively uneventful postoperative course. Patient reported satisfactory pain control with oral pain medications by postoperative day 1. Patient showed satisfactory progress with physical therapy. Patient moved steadily through the program and had no difficulty meeting the goals by postoperative day 1. Given patient's otherwise satisfactory course and having met physical therapy goals, plan is to discharge patient home on postoperative day 1. Discharge condition/disposition: Patient will be discharged home in stable condition. Discharge medications: Instructions are given on resumption of patient's normal daily medications per primary care recommendation, in addition patient will be prescribed [place] 7.5 mg/325 mg; aspirin 325 mg daily 21 days; Colace. Discharge instructions: 1. Wound care and infection precautions, keep incision dry and covered while showering, no lotions, creams, moisturizers. No soaking, tubs, pools, hottubs. Do not scrub over the incision. 2. Weight-bear as tolerated with walker/cane if necessary 3. Ice when necessary. Do not exceed 20 minutes per hour with ice pack. 4. Keep operative arm in sling. Non-weight bearing operative arm 5. Pain meds and anticoagulants per prescription. 6. Pain medication has potential to cause constipation. Increase oral fluid and fiber intake. Contact primary care provider if you have not had a bowel movement within 48 hours after discharge 7. No anti-inflammatory medication until discussed at first post operative visit, this including Motrin, Aleve, Mobic, Diclofenac. 8. Follow up in office at 2 weeks postop with Hero Ray PA-C / Edwardo Maloney PA-C 9. Follow up with your primary care doctor 7-10 days after discharge. 10. Contact [facility] with any questions, . Keep incision clean, dry, intact. While showering, cover incision with Saran wrap. Follow up in 2 weeks in office Medications: [place] 7.5 mg/325 mg; aspirin 325 mg daily 21 days; Colace Assessment: Severe left glenohumeral joint osteoarthrosis Procedures: Left total shoulder arthroplasty Patient Condition at Discharge: Good Plan - Discharge Summary Discharge Rx Participant: Yes New Discharge Prescriptions: New HYDROcodone/APAP 7.5-325MG [[place] 7.5] 1 each PO Q6HR PRN #28 tab PRN Reason: Pain Aspirin 325 mg PO DAILY #21 tab Docusate [Colace] 100 mg PO DAILY #30 capsule No Action metFORMIN HCL [Glucophage] 500 mg PO BID Ibuprofen [Advil] 800 mg PO Q8H PRN PRN Reason: Fever And/ Or Pain Multivitamins, Thera [Multivitamin (formulary)] 1 tab PO DAILY Losartan [Cozaar] 50 mg PO DAILY Atorvastatin [Lipitor] 20 mg PO DAILY [place]-3 Fatty Acids/Fish Oil [Fish Oil 1,000 mg Softgel] 1 each PO DAILY Acetaminophen [Tylenol Arthritis] 1,300 mg PO Q8HR PRN PRN Reason: Pain hydroCHLOROthiazide 25 mg PO ONCE Dulaglutide [Trulicity] 0.75 mg SQ WEEKLY Discharge Medication List Ibuprofen [Advil] 800 mg PO Q8H PRN 06/01/20 [History] metFORMIN HCL [Glucophage] 500 mg PO BID 06/01/20 [History] Acetaminophen [Tylenol Arthritis] 1,300 mg PO Q8HR PRN 07/26/21 [History] Atorvastatin [Lipitor] 20 mg PO DAILY 07/26/21 [History] Losartan [Cozaar] 50 mg PO DAILY 07/26/21 [History] Multivitamins, Thera [Multivitamin (formulary)] 1 tab PO DAILY 07/26/21 [History] [place]-3 Fatty Acids/Fish Oil [Fish Oil 1,000 mg Softgel] 1 each PO DAILY 07/26/21 [History] Dulaglutide [Trulicity] 0.75 mg SQ WEEKLY 07/31/21 [History] hydroCHLOROthiazide 25 mg PO ONCE 07/31/21 [History] Aspirin 325 mg PO DAILY #21 tab 08/01/21 [Rx] Docusate [Colace] 100 mg PO DAILY #30 capsule 08/01/21 [Rx] HYDROcodone/APAP 7.5-325MG [[place] 7.5] 1 each PO Q6HR PRN #28 tab 08/01/21 [Rx] Follow up Appointment(s)/Referral(s): Edwardo Maloney PAC [PHYSICIAN LITERACY EDUCATION PROFESSOR] - 2 Weeks Patient Instructions/Handouts: Shoulder Arthroplasty (DC) Activity/Diet/Wound Care/Special Instructions: Discharge instructions: 1. Wound care and infection precautions, keep incision dry and covered while showering, no lotions, creams, moisturizers. No soaking, tubs, pools, hottubs. Do not scrub over the incision. 2. Weight-bear as tolerated with walker/cane if necessary 3. Ice when necessary. Do not exceed 20 minutes per hour with ice pack. 4. Keep operative arm in sling. Non-weight bearing operative arm 5. Pain meds and anticoagulants per prescription. 6. Pain medication has potential to cause constipation. Increase oral fluid and fiber intake. Contact primary care provider if you have not had a bowel movement within 48 hours after discharge 7. No anti-inflammatory medication until discussed at first post operative visit, this including Motrin, Aleve, Mobic, Diclofenac. 8. Follow up in office at 2 weeks postop with Hero Ray PA-C / Edwardo Maloney PA-C 9. Follow up with your primary care doctor 7-10 days after discharge. 10. Contact [facility] with any questions, . Keep incision clean, dry, intact. While showering, cover incision with Saran wrap. Follow up in 2 weeks in office Medications: [place] 7.5 mg/325 mg; aspirin 325 mg daily 21 days; Colace Discharge Disposition: HOME SELF-CARE
--- NOTE | 2021-08-01 12:59 | P.PN ---
Subjective Progress Note Date: 08/01/21 Principal diagnosis: Severe left glenohumeral joint osteoarthrosis Patient was seen at bedside this morning resting comfortably sitting up in chair. Patient says he is doing well this morning. Patient says he has been up walking around the room. Patient says he has been keeping his left arm in sling. Patient says he is having some minor pain in the left shoulder. Patient says he is ready to go home. Patient denies chest pain, fever, shortness of breath, nausea, conjunctivae vision, loss of bowel/bladder control. Objective - Vital Signs Vital signs: Vital Signs Temp 98.5 F 08/01/21 08:00 Pulse 105 H 08/01/21 08:00 Resp 16 08/01/21 08:00 BP 118/73 08/01/21 08:00 Pulse Ox 91 L 08/01/21 08:00 Intake & Output 07/31/21 08/01/21 08/01/21 18:59 06:59 18:59 Intake Total 1101 Output Total 200 Balance 901 Weight 150.3 kg Intake: IV 1101 Output: Estimated Blood Loss 200 Other: # Voids 0 2 - Exam Left shoulder: Incision is clean, dry, and intact. The Steri-Strips/incision is in good condition. There is minimal soft tissue swelling and ecchymosis surrounding the medial and lateral aspects of the incision. Patient has good range of motion in the left wrist and left elbow. Patient has full range of motion in bilateral lower extremities. Patient has full range of motion right upper extremity. Calf is soft, no tenderness with palpation. Plantar flexion, dorsiflexion, EHL, FHL are intact. Sensory exam to light touch throughout the extremity is intact, dorsal pedis pulses 2+. Radial pulses intact, 2+ bilaterally. - Labs CBC & Chem 7: 08/01/21 05:25 08/01/21 05:25 Labs: Abnormal Lab Results - Last 24 Hours (Table) 07/31/21 07/31/21 07/31/21 Range/Units 10:13 15:44 19:59 WBC (4.50-10.00) X 10*3/uL RBC (4.40-5.60) X 10*6/uL Hgb (13.0-17.0) g/dL Hct (39.6-50.0) % Neutrophils # (1.80-7.70) X 10*3/uL Monocytes # (0.20-1.00) X 10*3/uL Potassium (3.5-5.5) mmol/L Glucose (70-110) mg/dL POC Glucose (mg/dL) 125 H 177 H 171 H (75-99) mg/dL 08/01/21 08/01/21 08/01/21 Range/Units 05:25 05:25 07:08 WBC 10.59 H (4.50-10.00) X 10*3/uL RBC 3.96 L (4.40-5.60) X 10*6/uL Hgb 11.5 L (13.0-17.0) g/dL Hct 33.9 L (39.6-50.0) % Neutrophils # 8.21 H (1.80-7.70) X 10*3/uL Monocytes # 1.24 H (0.20-1.00) X 10*3/uL Potassium 3.4 L (3.5-5.5) mmol/L Glucose 147 H (70-110) mg/dL POC Glucose (mg/dL) 155 H (75-99) mg/dL Assessment and Plan Assessment: 1. Severe left glenohumeral joint osteoarthrosis Postoperative day #1 status post left total shoulder arthroplasty Plan: 1. Severe left glenohumeral joint osteoarthrosis - left total shoulder arthroplasty performed yesterday, 07/31/2021. Patient was stable at bedside this morning with sling on left arm. Plan discharge home today 2. Appreciate medical management 3. Pain management- [place] 4. DVT prophylaxis - Lovenox in hospital. Going home with aspirin 325 mg daily 21 days 5. GI prophylaxis - Colace 6. PT/OT - nonweightbearing left upper extremity. Maintain in sling 7. Encourage incentive spirometer use 8. Discharge planning - discharge home today Time with Patient: Less than 30
== END 2021-08-01 11:19 | disposition home or self-care (01) ==
LOC: OR 09:44 → 4SSUR 15:07 → OR 08-01 11:19
PROVIDERS: ATTEND Orthopaedic Surgery
DX: M19.012 Primary osteoarthritis, left shoulder (principal); E11.9 Type 2 diabetes mellitus without complications; E66.9 Obesity, unspecified; Z68.43 Body mass index [BMI] 50.0-59.9, adult; Z80.9 Family history of malignant neoplasm, unspecified; I71.4 Abdominal aortic aneurysm, without rupture; I10 Essential (primary) hypertension; E78.5 Hyperlipidemia, unspecified; G47.33 Obstructive sleep apnea (adult) (pediatric); Z87.442 Personal history of urinary calculi; Z79.84 Long term (current) use of oral hypoglycemic drugs; Z79.1 Long term (current) use of non-steroidal anti-inflammatories (NSAID); Z79.899 Other long term (current) drug therapy
CPT/HCPCS: 64415; 76942; 80048; 85025; 88300; 73020; 23472; C1713; C1776; J2250; J2710; J0690 ×3; J2405; J2001; J1650; J3010; J2795; J2370; J0330; J2704; J1170

== ENCOUNTER 2021-10-18 07:29 | Day surgery (SDC) | payer MEDICARE ==
[2021-10-17 14:52] VITALS: BMI 48.6
--- NOTE | 2021-10-18 07:43 | P.GSHP ---
History of Present Illness H&P Date: 10/18/21 CHIEF COMPLAINT: Colon screen HISTORY OF PRESENT ILLNESS: The patient is a 71-year-old male who presents for colon screen. Lower endoscopy was offered for further evaluation and management. PAST MEDICAL HISTORY: Please see list. PAST SURGICAL HISTORY: Please see list. MEDICATIONS: Please see list. ALLERGIES: Please see list. SOCIAL HISTORY: No illicit drug use FAMILY HISTORY: No reports of Crohn disease or ulcerative colitis. REVIEW OF ORGAN SYSTEMS: CONSTITUTIONAL: No reports of fevers or chills. PHYSICAL EXAM: VITAL SIGNS: Stable GENERAL: Well-developed pleasant in no acute distress. HEENT: No scleral icterus. Extraocular movements grossly intact. Moist buccal mucosa. NECK: Supple without lymphadenopathy. CHEST: Unlabored respirations. Equal bilateral excursions. CARDIOVASCULAR: Regular rate and rhythm. Distal 2+ pulses. ABDOMEN: Soft, nontender, nondistended. MUSCULOSKELETAL: No clubbing, cyanosis, or edema. ASSESSMENT: 1. Colon screen. PLAN: 1. Recommend proceeding with a lower endoscopy Past Medical History Past Medical History: Diabetes Mellitus, Hyperlipidemia, Hypertension, Osteoarthritis (OA), Sleep Apnea/CPAP/BIPAP Additional Past Medical History / Comment(s): STATES BORDERLINE DIABETES, HX KIDNEY STONES, HX OF MALARIA 35 YRS AGO, hx polyps History of Any Multi-Drug Resistant Organisms: None Reported Past Surgical History: Joint Replacement Additional Past Surgical History / Comment(s): jennifer knee replacement, left shoulder replacement Past Anesthesia/Blood Transfusion Reactions: Previous Problems w/ Anesthesia Additional Past Anesthesia/Blood Transfusion Reaction / Comment(s): WOKE UP DURING LAST COLONOSCOPY Smoking Status: Never smoker - Past Family History Father Family Medical History: Cancer Medications and Allergies Home Medications Medication Instructions Recorded Confirmed Type Ibuprofen [Advil] 800 mg PO Q8H PRN 06/01/20 10/17/21 History metFORMIN HCL [Glucophage] 500 mg PO BID 06/01/20 10/17/21 History Atorvastatin [Lipitor] 20 mg PO DAILY 07/26/21 10/17/21 History Losartan [Cozaar] 50 mg PO DAILY 07/26/21 10/17/21 History Multivitamins, Thera [Multivitamin 1 tab PO DAILY 07/26/21 10/17/21 History (formulary)] [place]-3 Fatty Acids/Fish Oil [Fish 1 each PO DAILY 07/26/21 10/17/21 History Oil 1,000 mg Softgel] Dulaglutide [Trulicity] 0.75 mg SQ FR 07/31/21 10/17/21 History hydroCHLOROthiazide 25 mg PO DAILY 07/31/21 10/17/21 History Allergies Allergy/AdvReac Type Severity Reaction Status Date / Time No Known Allergies Allergy Verified 10/17/21 14:44
[2021-10-18] MEDS ORDERED: LACTATED RINGERS 1,000 ML IV SCH (07:45)
[2021-10-18 07:54] VITALS: TEMP 97.2
[2021-10-18] MEDS ORDERED: LIDOCAINE 1% (10MG/ML) FOR IV START INTRADERMA ONE (07:54)
[2021-10-18 08:07] LABS: Glucose,Whole Blood 123 mg/dL (75-99)
[2021-10-18] MEDS ORDERED: PROPOFOL 10 MG/ML 20 ML VIAL IV ONE (08:34)
[2021-10-18] MEDS ORDERED: LIDOCAINE 2% INJ 20 MG/ML (2 ML VIAL) ONE (08:34)
[2021-10-18 09:19] VITALS: BP 123/84; PULSE 80; RESP 20
--- NOTE | 2021-10-18 09:41 | P.PCN ---
Date of Procedure: 10/18/21 Description of Procedure: PREOPERATIVE DIAGNOSIS: Personal history of colon polyps Colonoscopy screening POSTOPERATIVE DIAGNOSIS: Personal history of colon polyps Colonoscopy screening Tubular adenoma cecum Tubular adenoma ascending colon Tubular adenoma descending colon OPERATION: Colonoscopy to the ileocecal valve and appendiceal orifice, cecum Colonoscopy with hot snare polypectomy SURGEON: Rosemary Meade MD. ANESTHESIA: MAC. INDICATIONS: The patient is an 71-year-old male who presents family history of malignant colon polyps and personal history of colon polyps. Last colonoscopy 5 years. Benefits and risks were described and informed consent was obtained. DESCRIPTION OF PROCEDURE: The patient had undergone Sutab prep. The patient had been brought into the operating room and laid in the left lateral decubitus position. After adequate intravenous sedation, the rectum was examined with 2% lidocaine jelly. The prostate was unremarkable. No external hemorrhoids were encountered. The rectal tone was within normal limits. No lesions were palpated in the rectal vault. An Olympus colonoscope was advanced until the cecum, ileocecal valve and appendiceal orifice were clearly viewed. The prep was excellent. No sigmoid diverticulosis was encountered. Colonic polyps were found and removed. No evidence of focal colitis was found. Retroflexion of the scope demonstrated grade 2 internal hemorrhoids without active bleeding or inflammation. The colon was desufflated. The patient had tolerated the procedure well. Withdrawal time was over 6 minutes. FINDINGS: Aronchick preparation quality scale 1 (1-5) Internal hemorrhoids, grade 3 with recent inflammation and bleeding No external hemorrhoids No arteriovenous malformations. No sigmoid diverticulosis Removal of 5 polyps: - Snare polypectomy cecum/appendiceal orifice 3, 4-6 mm tubulovillous adenomas - Snare polypectomy ascending colon, 6 mm flat villous adenoma polyp. - Snare polypectomy at 40 cm from the anal verge , 8 mm flat villous adenoma polyp, descending colon No focal colitis. RECOMMENDATIONS: Repeat colonoscopy in 3 years, 2024 Plan - Discharge Summary New Discharge Prescriptions: Continue metFORMIN HCL [Glucophage] 500 mg PO BID Ibuprofen [Advil] 800 mg PO Q8H PRN PRN Reason: Fever And/ Or Pain Multivitamins, Thera [Multivitamin (formulary)] 1 tab PO DAILY Losartan [Cozaar] 50 mg PO DAILY Atorvastatin [Lipitor] 20 mg PO DAILY [place]-3 Fatty Acids/Fish Oil [Fish Oil 1,000 mg Softgel] 1 each PO DAILY hydroCHLOROthiazide 25 mg PO DAILY Dulaglutide [Trulicity] 0.75 mg SQ FR Discharge Medication List Ibuprofen [Advil] 800 mg PO Q8H PRN 06/01/20 [History] metFORMIN HCL [Glucophage] 500 mg PO BID 06/01/20 [History] Atorvastatin [Lipitor] 20 mg PO DAILY 07/26/21 [History] Losartan [Cozaar] 50 mg PO DAILY 07/26/21 [History] Multivitamins, Thera [Multivitamin (formulary)] 1 tab PO DAILY 07/26/21 [History] [place]-3 Fatty Acids/Fish Oil [Fish Oil 1,000 mg Softgel] 1 each PO DAILY 07/26/21 [History] Dulaglutide [Trulicity] 0.75 mg SQ FR 07/31/21 [History] hydroCHLOROthiazide 25 mg PO DAILY 07/31/21 [History] Follow up Appointment(s)/Referral(s): Rosemary Meade MD [STAFF PHYSICIAN] - As Needed Patient Instructions/Handouts: *Surgery [facility] - (Anesthesia) Endoscopy Discharge Instructions, Colorectal Polyps (GEN) Activity/Diet/Wound Care/Special Instructions: Repeat colonoscopy in 3 years, 2024 Discharge Disposition: HOME SELF-CARE
== END 2021-10-18 09:26 | disposition home or self-care (01) ==
LOC: ORWHC2ENDO 07:29
PROVIDERS: ATTEND Surgery Plastic and Reconstructive Surgery
DX: Z12.11 Encounter for screening for malignant neoplasm of colon (principal); D12.0 Benign neoplasm of cecum; D12.2 Benign neoplasm of ascending colon; D12.4 Benign neoplasm of descending colon; E11.9 Type 2 diabetes mellitus without complications; E78.5 Hyperlipidemia, unspecified; G47.30 Sleep apnea, unspecified; I10 Essential (primary) hypertension; M19.90 Unspecified osteoarthritis, unspecified site; Z79.1 Long term (current) use of non-steroidal anti-inflammatories (NSAID); Z79.84 Long term (current) use of oral hypoglycemic drugs; Z79.899 Other long term (current) drug therapy; Z80.0 Family history of malignant neoplasm of digestive organs; Z87.19 Personal history of other diseases of the digestive system; Z87.442 Personal history of urinary calculi; Z96.612 Presence of left artificial shoulder joint; Z96.653 Presence of artificial knee joint, bilateral; Z86.010 Personal history of colon polyps
CPT/HCPCS: 45385; 88305; J2704; J2001

== ENCOUNTER → 2022-02-07 | Outpatient (CLI) | payer MEDICARE ==
--- NOTE | 2022-02-07 13:25 | US ---
EXAMINATION TYPE: US venous doppler duplex LE RT DATE OF EXAM: 02/07/2022 1:11 PM COMPARISON: NONE CLINICAL HISTORY: R22.41 SWELLING OF LOWER LEG. Calf cramping that hasn't gone on away. Just started aspirin SIDE PERFORMED: Right TECHNIQUE: The lower extremity deep venous system is examined utilizing real time linear array sonog kang with graded compression, doppler sonography and color-flow sonography. VESSELS IMAGED: Common Femoral Vein Deep Femoral Vein Greater Saphenous Vein * Femoral Vein Popliteal Vein Small Saphenous Vein * Proximal Calf Veins (* superficial vessels) Right Leg: Negative for DVT Grayscale, color doppler, spectral doppler imaging performed of the deep veins of the right lower ext remity. There is normal flow, compressibility, vascular waveforms. IMPRESSION: No ultrasound evidence for acute DVT in the right lower extremity.
[2022-02-07 18:13] LABS: Basophils # (A) 0.07 X 10*3/uL (0.00-0.10); Basophils % (A) 0.9 %; Eosinophils # (A) 0.23 X 10*3/uL (0.04-0.35); Eosinophils % (A) 3.1 %; HCT 36.2 % (39.6-50.0); HGB 12.5 g/dL (13.0-17.0); Immature Grans, Automated 0.3 %; Lymphocytes # (A) 1.21 X 10*3/uL (0.90-5.00); Lymphocytes % (A) 16.3 %; MCHC 34.5 g/dL (32.0-37.0); Mean Platelet Volume 11.2 fL (9.5-12.2); Monocytes # (A) 0.97 X 10*3/uL (0.20-1.00); Monocytes % (A) 13.1 %; NRBC Per 100 WBC 0 /100 WBCS (0.0-0.0); Neutrophils # (A) 4.92 X 10*3/uL (1.80-7.70); Neutrophils % (A) 66.3 %; Platelet Count 203 X 10*3/uL (140-440); RBC 4.31 X 10*6/uL (4.40-5.60); RDW 13.6 % (11.5-14.5); WBC 7.42 X 10*3/uL (4.50-10.00)
[2022-02-07 18:57] LABS: African American GFR (CKD) 78.4 (60.0-200.0); Albumin 4.2 g/dL (3.8-4.9); Albumin/Globulin Ratio 1.56 (1.60-3.17); Anion Gap 12.8 mmol/L (10.00-18.00); BUN/Creat Ratio 18.36 Ratio (12.00-20.00); Blood Urea Nitrogen 20.2 mg/dL (9.0-27.0); Calcium 9.6 mg/dL (8.7-10.3); Carbon Dioxide 28.2 mmol/L (20.0-27.5); Globulin 2.7 g/dL (1.6-3.3); Non-African American GFR(CKD) 67.7 (60.0-200.0); Potassium 3.7 mmol/L (3.5-5.5); Total Bilirubin 0.7 mg/dL (0.30-1.20); Total Protein 6.9 g/dL (6.2-8.2)
== END | disposition home or self-care (01) ==
LOC: RADUSWWP 12:45
PROVIDERS: ATTEND Family Medicine
DX: R22.41 Localized swelling, mass and lump, right lower limb (principal)
CPT/HCPCS: 36415; 80053; 83880; 85025

== ENCOUNTER → 2023-09-29 | Outpatient (CLI) | payer MEDICARE ==
--- NOTE | 2023-09-29 15:06 | XR ---
EXAMINATION TYPE: XR chest 2V DATE OF EXAM: 09/29/2023 COMPARISON: 06/01/2020 TECHNIQUE: PA and lateral views submitted. HISTORY: Chronic cough FINDINGS: The lungs are clear and there is no pneumothorax, pleural effusion, or focal pneumonia. Heart size normal and no overt failure. Osseous structures demonstrate hypertrophic and degenerative changes of the spine. Cardiac capitellar device overlying the left hemithorax. Postsurgical change left shoulder . Diffuse osteopenia. Limited inspiration. IMPRESSION: 1. No acute process.
== END | disposition home or self-care (01) ==
LOC: RADXRMAIN 14:16
PROVIDERS: ATTEND Family Medicine
DX: R05.3 Chronic cough (principal)
CPT/HCPCS: 71046

== ENCOUNTER 2024-02-26 12:36 | Day surgery (SDC) | payer MEDICARE ==
[2024-02-26] MEDS: SODIUM CHLORIDE 0.9% 1,000 ML IV SCH (12:55)
[2024-02-26] MEDS: IV FLUID CONTINUATION 1,000 ML IV ONE (13:11)
[2024-02-26 13:18] VITALS: BP 125/82; PULSE 79; RESP 16; TEMP 97.6
[2024-02-26] MEDS: ceFAZolin 3 GM in SODIUM CHLORIDE 0.9% 100 ML IVPB STA (15:13)
[2024-02-26] MEDS: LIDOCAINE 1% INJ 10MG/ML (20 ML MDV) SQ ONE (15:22)
--- NOTE | 2024-02-26 15:52 | P.EPPROC ---
- EP Procedure Note Electrophysiology Procedure Note: Loop monitor implant Primary physicians: Pick Pulling Machine Operator: Dr. Francis Indication: Trifascicular block, recurrent dizzy spells Patient was brought to the EP lab in a fasting state. Written informed consent was obtained prior to the procedure. The left pectoral area was prepped and draped per protocol. Intravenous antibiotic was administered preoperatively. A subcutaneous Loop monitor was implanted successfully and the wound was closed per protocol. The device was programmed to detect significant dylan- arrhythmic and tachy-arrhythmic events, per protocol. Device and programming details: Bradycardia parameters for detection for presyncope and conduction system disease
[2024-02-27 06:58] LABS: Glucose,Whole Blood 95 mg/dL (70-110)
== END 2024-02-26 16:27 | disposition home or self-care (01) ==
LOC: CATHEP 12:36
PROVIDERS: ATTEND Internal Medicine Clinical Cardiac Electrophysiology
DX: R55 Syncope and collapse
CPT/HCPCS: 33285

== ENCOUNTER 2024-04-13 06:45 | Day surgery (SDC) | payer MEDICARE ==
[2024-04-13 08:27] VITALS: TEMP 98.1
[2024-04-13] MEDS: diazePAM 5 MG TAB PO STA (08:29)
[2024-04-13 09:09] LABS: Glucose,Whole Blood 115 mg/dL (70-110)
--- NOTE | 2024-04-13 11:16 | FL ---
EXAMINATION TYPE: FL myelogram cervical, NO CHARGE / NO BILL DATE OF EXAM: 04/13/2024 10:07 AM COMPARISON: Subsequent CT exam. CLINICAL INDICATION:Male, 73 years old with history of M54.2 cervicalgia; FINDINGS: Informed consent was obtained including discussion of the risks and benefits. Timeout was taken per p rotocol. Real-time fluoroscopy was performed to localize the lumbar spine access site. The patient wa s prepped and draped. Under sterile technique with local anesthesia a 22-gauge spinal needle was intr oduced into into what was thought to be the thecal sac. A total of 25 cc of Isovue-200 M and 2 mL of [id number] was injected. Total fluoroscopy time was 2 minutes 13 seconds Total fluoroscopic images 0. Radiographs taken: 25 DAP: Not Reported by machine [email or web address] IMPRESSION: NO CHARGE / NO BILL Technically difficult exam with subsequent CT demonstrating epidural injection. NO CHARGE / NO BILL [facility], , 04/13/2024 11:14 AM
--- NOTE | 2024-04-13 12:01 | CT ---
EXAMINATION TYPE: CT cervical spine w con, CT lumbar spine w con NO CHARGE NO BILL DATE OF EXAM: 04/13/2024 10:41 AM COMPARISON: None. CLINICAL INDICATION: Male, 73 years old with history of M54.2 cervicalgia; post myelogram (accession [id number]), post myelogram. for Contrast purposes (accession [id number]) TECHNIQUE: Axial imaging of the cervical and lumbar spine were performed with sagittal coronal reform ats created. Contrast was injected and the thecal sac. Epidural space Contrast used:30ml mL of Isovue M200 with IV Contrast, (if blank None) Oral contrast used: (if blank None) CT DLP: 1021 (accession [id number]), 967 (accession [id number]) mGycm, Automated exposure control for dos e reduction was used. FINDINGS: No evidence of fracture. Multilevel degeneration changes throughout the cervical spine with osteophyte formation, facet and un covertebral joint arthropathy.. Spinal canal stenosis worse in the lower cervical spine with at least mild stenosis from C3 through C7. Neural foraminal stenosis worse at C3-C4 with mild/moderate C4-C5 with mild to moderate left C5-C6 mild bilateral, C6-C7 with mild to moderate left C7-T1 with moderate bilateral. Degeneration changes of the lumbar spine with vacuum disc phenomena, osteophytes and facet arthropath y worse at L3-L5. There is at least moderate to severe L4-L5 and L3-L4 spinal canal stenosis. There i s moderate to severe facet joint arthropathy L3-L4, L4-L5 and L5-S1 with moderate to severe bilateral neural foraminal stenosis. Pseudoarthrosis of the spinous process in the lumbar spine. No evidence o f fracture of the lumbar spine. There is bridging osteophytes of the sacroiliac joints bilaterally. Nonobstructing renal calculi bilaterally. Mild atherosclerosis of the arterial vasculature. IMPRESSION: NO CHARGE NO BILL 1. Mild to moderate changes with the cervical spine with multilevel neural foraminal stenosis as mark cribed above. No evidence for significant spinal canal stenosis due to limitations of exam. 2. Moderate to severe degeneration changes of the lumbar spine with moderate to severe L3-L4 and L4- L5 spinal canal stenosis. 3. Neural foraminal stenosis worse in the lumbar spine at L3-L4, L4-L5 and L5-S1 with moderate to se radha bilateral 4. Pseudoarthrosis of the spinous processes and lumbar spine correlate for Baastrup's disease. [facility], , 04/13/2024 11:59 AM
[2024-04-14 09:47] VITALS: RESP 16
[2024-04-14 09:53] VITALS: PULSE 80
[2024-04-14 09:57] VITALS: BP 131/81
== END 2024-04-13 13:58 | disposition home or self-care (01) ==
LOC: RADPROMAIN 06:45
PROVIDERS: ATTEND Orthopaedic Surgery
DX: M48.02 Spinal stenosis, cervical region (principal); M47.812 Spondylosis without myelopathy or radiculopathy, cervical region; M47.816 Spondylosis without myelopathy or radiculopathy, lumbar region; M48.061 Spinal stenosis, lumbar region without neurogenic claudication; M47.817 Spondylosis without myelopathy or radiculopathy, lumbosacral region; M48.07 Spinal stenosis, lumbosacral region
CPT/HCPCS: 62302; 72126; 72132; Q9966; Q9967

== ENCOUNTER → 2024-08-31 | Outpatient (CLI) | payer MEDICARE ==
[2024-08-31 15:28] LABS: Blood Urea Nitrogen 16.5 mg/dL (9.0-27.0); Carbon Dioxide 25.6 mmol/L (21.6-31.8); Chloride 98 mmol/L (96-109); Potassium 4.1 mmol/L (3.5-5.5); Sodium 136 mmol/L (135-145)
[2024-08-31 15:29] LABS: HCT 40.8 % (39.6-50.0); HGB 13.7 g/dL (13.0-17.0); MCH 28.7 pg (27.0-32.0); MCHC 33.6 g/dL (32.0-37.0); MCV 85.5 FL (80.0-97.0); Mean Platelet Volume 10.8 FL (9.5-12.2); NRBC Per 100 WBC 0 X 10*3/uL (0.00-0.01); Platelet Count 206 X 10*3/uL (140-440); RBC 4.77 X 10*6/uL (4.40-5.60); RDW 13.5 % (11.5-14.5); WBC 7.14 X 10*3/uL (4.50-10.00)
== END | disposition home or self-care (01) ==
LOC: LABPAT 10:55
PROVIDERS: ATTEND Internal Medicine Clinical Cardiac Electrophysiology
DX: Z01.812 Encounter for preprocedural laboratory examination (principal); I44.2 Atrioventricular block, complete; I45.2 Bifascicular block
CPT/HCPCS: 36415; 80051; 82565; 84520; 85027

== ENCOUNTER 2024-09-02 11:15 | Day surgery (SDC) | payer MEDICARE ==
[2024-09-01 08:50] VITALS: BMI 45.6
[2024-09-02] MEDS: SODIUM CHLORIDE 0.9% 1,000 ML IV SCH ×2 (11:56→11:57)
[2024-09-02] MEDS: LACTATED RINGERS 1,000 ML IV SCH (11:56)
[2024-09-02 11:59] LABS: Glucose,Whole Blood 103 mg/dL (70-110)
[2024-09-02] MEDS: IV FLUID CONTINUATION 1,000 ML IV ONE (11:59)
[2024-09-02 12:23] LABS: African American GFR (CKD) >90 (>60 ml/min/1.73 sqM); Anion Gap 11 mmol/L; Blood Urea Nitrogen 16 mg/dL (9-20); Calcium 9.5 mg/dL (8.4-10.2); Carbon Dioxide 25 mmol/L (22-30); Chloride 104 mmol/L (98-107); Glucose 103 mg/dL (74-99); Non-African American GFR(CKD) 82 (>60 ml/min/1.73 sqM); Sodium 140 mmol/L (137-145)
[2024-09-02] MEDS ORDERED: MIDAZOLAM 2 MG/2 ML VIAL ONE (13:53)
[2024-09-02] MEDS ORDERED: fentaNYL (PF) 50 MCG/ML 2 ML AMP ONE (13:53)
[2024-09-02] MEDS ORDERED: diphenhydrAMINE 50 MG/ML 1 ML VIAL ONE (13:53)
[2024-09-02] MEDS ORDERED: KETAMINE HCL IN 0.9 % NACL 50 MG/5 ML SYRINGE ONE (13:53)
[2024-09-02] MEDS: IOPAMIDOL-370 100ML BTL IVP ONE (14:09)
[2024-09-02] MEDS: ceFAZolin 1 GM in SODIUM CHLORIDE 0.9% IRRIG BTL 250 ML IRRIGATION PRN (14:33)
[2024-09-02] MEDS: ceFAZolin 2 GM in DEXTROSE 5% IN WATER 50 ML IVPB PRN (14:47)
[2024-09-02] MEDS: LIDOCAINE 1% INJ 10MG/ML (20 ML MDV) SQ ONE ×2 (15:05→15:10)
[2024-09-02] MEDS: ROPIVACAINE 5MG/ML 20ML VIAL MISCELLANE ONE (15:05)
--- NOTE | 2024-09-02 18:19 | P.EPPROC ---
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 Written informed consent was obtained prior to the procedure. Conscious sedation provided by [employer]. IV antibiotics administered. Local anesthesia administered. A 4 cm incision made in the pectoral area. Subfascial pocket made. Venous accesses obtained Venous sheaths placed. Leads placed in the right heart. 2 sets of pacing cables were used; one for backup temporary pacing and the other for assessment of current of injury and signal analysis. A 52 cm atrial pacing lead was first positioned in the RV apex for temporary pacing during mapping and conduction system pacing Thresholds were interrogated and backup high output pacing was provided This atrial lead was then removed from the right ventricle and later positioned in the right atrial appendage and the permanent lead A deflected sheath was prepped. A coronary sinus decapolar catheter was placed within this sheath. The catheter along with the sheath was then passed into the right heart, the catheter was prolapsed across the tricuspid valve, into the right ventricle and then further into the right ventricular outflow tract across the pulmonic valve into the pulmonary artery. This sheath was slid over this decapolar catheter into the RVOT. Thereafter the catheter last sheath assembly was withdrawn from the RVOT along the septum to the mid septal area. The sheath was appropriately to to map the right ventricular aspect of the septum. The decapolar catheter was withdrawn, the sheath flushed again and the screw-in pacing lead placed within the sheath. Further detailed unipolar pace-mapping of the septum was performed and once the appropriate based morphology was obtained on lead V1, the lead was screwed into the septum. The lead was screwed in 4-5 returns at a time while monitoring the current of injury, the pacing impedance changes and the paced QRS morphology. The stimulus to peak of V6 QRS was measured at each step. Once a QR or rSR pattern of paced QRS in lead V1 was obtained, a left bundle signal was sought. Impedance was measured and thresholds were measured. An impedance drop of 100-200 ohms but above 550 ohms was targeted along with an unchanged vector of the current of injury signal. The final positioning was based on the QRS morphology in lead V1 and a short stimulus to peak of the V6 QRS of less than 90 ms. The sheath was withdrawn, stability of the pacing lead deep in the septum was confirmed on CHAVES and GEORGE views and the sheath was slipped and an adequate heel was provided for the lead. Unipolar and bipolar electrogram morphology obtained Atrial lead positioned in the right atrial appendage. Sensing, thresholds and impedances measured following positioning and securing the lead in the right atrial appendage Left bundle lead parameters: Paced QRS width 168 ms, stimulus-peak to V6 less than 84 ms Model #3830, 69 cm in length R waves 20 mV, pacing impedance 703 ohms and pacing threshold 0.5 V at 0.4 ms Rapid activation of less than 84 ms. 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
[2024-09-02] MEDS: ceFAZolin 2 GM in DEXTROSE 5% IN WATER 50 ML IVPB SCH (20:00)
[2024-09-02] MEDS: metFORMIN 500 MG TAB PO SCH (20:00)
[2024-09-02 20:55] LABS: INR 1.1 (<1.2); Prothrombin Time 12.4 sec (10.0-12.5)
[2024-09-03] MEDS: ACETAMINOPHEN IV (For NPO) 1,000 MG in EMPTY BAG 1 BAG IVPB ONE (01:19)
[2024-09-03] MEDS: ACETAMINOPHEN TAB 325 MG TAB PO PRN (01:20)
--- NOTE | 2024-09-03 07:43 | XR ---
EXAMINATION TYPE: XR chest 2V DATE OF EXAM: 09/03/2024 6:51 AM COMPARISON: None. CLINICAL INDICATION: Male, 73 years old with history of Lead placement check, TECHNIQUE: XR chest 2V view(s) obtained. FINDINGS: The heart size is upper limits of normal. Pacemaker overlies left chest The pulmonary vasculature is normal. The lungs are clear. Left shoulder prosthesis is present IMPRESSION: 1. No acute pulmonary process. [facility], , 09/03/2024 7:41 AM
[2024-09-03 07:45] VITALS: BP 133/88; PULSE 72; RESP 15; TEMP 97.4
[2024-09-03] MEDS: hydroCHLOROthiazide 25 MG TAB PO SCH (09:14)
[2024-09-03] MEDS: LOSARTAN 50 MG TAB PO SCH (09:14)
[2024-09-03] MEDS: ATORVASTATIN 40 MG TAB PO SCH (09:15)
--- NOTE | 2024-09-03 09:26 | DS ---
DISCHARGE SUMMARY Dear Antwan: Mr. Kemp underwent a dual-chamber pacemaker with conduction system pacing yesterday for paroxysmal AV block with presyncope. His x-ray looks normal. Leads are in stable position. His 12-lead EKG is normal. Blood pressure is in the normal range. Heart sounds are normal. No murmurs or gallops. Breath sounds are clear. He is very comfortable. Mild discomfort in the pacing site area with minimal soakage. No swelling. IMPRESSION: Paroxysmal AV block with presyncope. Status post dual-chamber pacemaker with conduction system pacing. PLAN: After pacemaker interrogation today, he may go home with the same medications. Follow up in the device clinic in a week and follow up with me in about 4 to 6 months. MMODL / IJN: [id number] /
== END 2024-09-03 11:01 | disposition home or self-care (01) ==
LOC: CATHEP 11:15 → 6NMEDSUR 16:48 → CATHEP 09-03 11:01
PROVIDERS: ATTEND Internal Medicine Clinical Cardiac Electrophysiology
DX: I44.2 Atrioventricular block, complete (principal); Z79.899 Other long term (current) drug therapy
CPT/HCPCS: 33208; 86900; 86901; 80048; 84443; 85610; 86850; 71046; C1769 ×2; C1730; C1887; C1892; C1898; C1785; J0690; J2003; Q9967; J2795